=== PATIENT | female | born 1960 | race Caucasian/White ===

== ENCOUNTER 2017-01-25 05:56 | Day surgery (SDC) | payer OTHER ==
--- NOTE | 2017-01-16 14:53 | HP ---
HISTORY AND PHYSICAL: DATE OF OFFICE VISIT: 01/15/17 DATE OF SURGERY: 01/25/17 SURGEON: Karen Garza MD * (DICTATED BY ANA MARIA MOTA) PROCEDURE: Left knee arthroscopy with partial medial meniscectomy, possible chondroplasty, and possible synovectomy. CHIEF COMPLAINT: Left knee pain. HISTORY OF PRESENT ILLNESS: Ms. Silvestre is a 56-year-old female with complaints of left knee pain after injuring her knee at work. MRI shows degeneration in the body of the medial meniscus, which likely represents a re-tear. She continues to have pain in the medial aspect of her knee and she feels like there is a mass in the back of her knee. She has catching along the joint line and increased pain with bending and kneeling. PAST MEDICAL HISTORY: Endometrial cancer. PAST SURGICAL HISTORY: Hysterectomy, cholecystectomy, and left knee arthroscopy. CURRENT MEDICATIONS: 1. Flexeril. 2. Ventolin HFA. 3. Fluticasone. 4. Ibuprofen. 5. Furosemide. 6. Nexium. ALLERGIES: CLARITHROMYCIN, LEVAQUIN, and LATEX. FAMILY HISTORY: Cancer and AFib. SOCIAL HISTORY: She is a 56-year-old female who is . 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 She denies use of tobacco or illicit drugs. She uses occasional alcohol. REVIEW OF SYSTEMS: A complete 14-point review of systems was reviewed with the patient, was all negative or noncontributory. PHYSICAL EXAMINATION GENERAL: She is well developed, well nourished, in no acute distress. VITAL SIGNS: She stands 5 feet 7 inches tall, weighs 322 pounds. Blood pressure 128/80, heart rate 79. HEENT: Normocephalic, atraumatic. NECK: Supple. No palpable lymph nodes. PULMONARY: Lungs are clear to auscultation bilaterally. CARDIO: Regular rate and rhythm. Strong S1, S2. ABDOMEN: Soft, nontender, nondistended. NEUROLOGIC: She is alert and oriented x3. Cranial nerves II through XII are intact. MUSCULOSKELETAL: Left lower extremity, the skin is intact. There are no open wounds or abrasions. She has tenderness along the medial joint line. A palpable Maoy's cyst posteriorly. 5 to 120 degrees flexion. No varus or valgus instability. Negative Tonya's. Distally neurovascularly intact. ASSESSMENT AND PLAN: Ms. Silvestre is a 56-year-old female with complaints of left knee pain after being involved in a work-related injury. She has failed conservative management and has elected to proceed with a left knee arthroscopy with partial medial meniscectomy, possible chondroplasty, and possible synovectomy. The surgery is scheduled for 01/25/[address] Garza discussed the risks and benefits of the surgery at today's visit and all of her questions were answered. She will see Dr. Garza back 10 to 14 day after the surgery. ANA MARIA MOTA [id number]/[facility] #: [id number] [place]
[~2017-01-25 05:56] MED LIST: Buffered Lidocaine 0.9% SYRIN* 5 ML/SYR SYRINGE INTRADERM ONE
[2017-01-25] MEDS ORDERED: Famotidine IV* 10 MG/ML 2 ML (20 mg) ONE (05:57)
[2017-01-25] MEDS ORDERED: ceFAZolin 1 GM in Dextrose (*) 1 GM/50 ML BAG IVPB ONE (05:57)
[2017-01-25] MEDS ORDERED: ceFAZolin 2 GM PREMIX(*) 2 GM/50 ML BAG IVPB ONE (05:58)
[2017-01-25] MEDS ORDERED: Buffered Lidocaine 0.9% SYRIN* 5 ML/SYR SYRINGE ONE (05:58)
[2017-01-25] MEDS ORDERED: Famotidine IV* 10 MG/ML 2 ML (20 mg) IV ONE (06:00)
[2017-01-25] MEDS ORDERED: EPINEPHrine AMP 1 MG/ML ONE (06:49)
[2017-01-25] MEDS ORDERED: Bupivacaine 0.5% SDV PF* 30 ML VIAL ONE (06:50)
[2017-01-25] MEDS ORDERED: methylPREDNISolone ACETATE 80* 80 MG/ML 1 ML VIAL ONE (07:01)
[2017-01-25] MEDS ORDERED: Chloroprocaine 2%* 20 ML VIAL ONE (07:28)
[2017-01-25] MEDS ORDERED: Ondansetron INJ* 2 MG/ML VIAL ONE (07:28)
[2017-01-25] MEDS ORDERED: Midazolam* 1 MG/ML 5 ML VIAL (5 MG) ONE (07:28)
[2017-01-25] MEDS ORDERED: Ketorolac INJ* 30 MG/ML 1 ML VIAL ONE (07:28)
[2017-01-25] MEDS ORDERED: fentaNYL* 50 MCG/ML 2 ML VIAL (100 MCG VIAL) ONE (07:28)
[2017-01-25] MEDS ORDERED: Propofol* 10 MG/ML 20 ML BTL IV PUSH ONE (08:02)
[2017-01-25] MEDS ORDERED: Lidocaine 2% PF * 5 ML VIAL ONE (08:02)
[2017-01-25] MEDS ORDERED: Acetaminophen TAB* 325 MG PO PRN (08:23)
[2017-01-25] MEDS ORDERED: DiMENhydriNATE IV* 50 MG/ML VIAL IV PUSH PRN (08:23)
[2017-01-25] MEDS ORDERED: HYDROmorphone* 1 MG/ML 1 ML SYR IV PRN (08:23)
[2017-01-25] MEDS ORDERED: oxyCODONE TAB* 5 MG TAB PO PRN (08:23)
[2017-01-25] MEDS ORDERED: oxyCODONE TAB* 5 MG TAB ONE (09:57)
[2017-01-25 09:59] VITALS: BP 129/84
--- NOTE | 2017-01-26 02:52 | OP ---
DATE OF OPERATION: 01/25/17 [facility] DATE OF : 56 ATTENDING SURGEON: Karen Garza MD. INFORMATION CLERK BROKERAGE: ANA MARIA Gilliland. Craigluis angel did help throughout the procedure with preparation of the leg, manipulation of the knee, holding the instruments and wound closure. ANESTHESIOLOGIST: Dr. Hernandez. ANESTHESIA: Spinal. PRE-OPERATIVE DIAGNOSIS: Left knee acute medial meniscus tear, mild arthritic changes. 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 OPERATIVE PROCEDURE: Left knee arthroscopy with partial medial meniscectomy and medial chondroplasty. ESTIMATED BLOOD LOSS: Less than 25 cc. COMPLICATIONS: None. SPECIMENS: None. BRIEF HISTORY/INDICATION: Ms. Silvestre is a 56-year-old female with left knee pain since a work injury on 10/25/15. She had a medial meniscal tear found at that time and did have arthroscopy with partial medial meniscectomy. The patient did well until approximately 6 months ago. She had re-tear of the medial meniscus. The patient failed conservative treatment with physical therapy, intraarticular injection and activity modification. She elected to undergo a second arthroscopy with partial medial meniscectomy due to continued pain. Informed consent was obtained from the patient. She understood the risks of the surgery included, but were not limited to bleeding, infection, damage to nearby structures, continued pain, need for further surgery, stroke, re-tear of the meniscus, heart attack, blood clot, and . She wished to proceed. INTRAOPERATIVE FINDINGS: Intraoperatively, the patient had acute radial tear on the posterior aspect of the medial meniscus. This involved white-red and red -red zone. 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 These were advanced from her first arthroscopy. DESCRIPTION OF PROCEDURE: Ms. Silvestre was identified in the preanesthesia unit. Her left lower extremity was marked as the correct operative side. Informed consent was signed and placed in the chart. The patient was taken to the operating room and placed under spinal anesthesia. The left lower extremity was prepped and draped in the usual sterile fashion. Preop time-out was made to correctly identify the patient's side and site. Appropriate perioperative antibiotics were given within 1 hour of incision. A 0.5 cm standard anterolateral portal incision was made and the knife was carried down through the capsule. A trocar was introduced. As soon as the light and water sources were turned on, there was immediate visualization of the supra-patellar pouch. A tour of the knee joint was performed. Suprapatellar pouch showed no obvious abnormality. Some grade 2 and 3 Outerbridge cartilage changes in the patellofemoral compartment. Medial gutters showed no obvious loose body or plica. The medial compartment showed grade 2 and 3 Outerbridge cartilage changes affecting the medial femoral condyle. There was an acute radial tear in the posterior medial meniscus. ACL appeared to be intact. The knee was placed in the [id number] position. Lateral meniscus appeared to be intact. No significant cartilage changes in the lateral compartment. Under direct visualization, a 15 blade was used to make a standard medial portal. The probe was introduced and then a second tour of the knee joint was performed. There were no additional findings. Radiofrequency ablation wand was introduced into the knee joint. Anterior synovitis was carefully removed. This improved visualization. Small cartilage flaps along the medial femoral condyle were smoothed with the radiofrequency ablation wand. A straight biter was placed in the joint next and used to perform partial medial meniscectomy along the posterior medial meniscus in the white-red and red-red zone. Radiofrequency ablation wand was then used to coagulate the smooth edge of the meniscus. The knee was copiously irrigated with sterile saline. All instruments were carefully removed. The incisions were closed using interrupted 3-0 nylon suture. Intra-articular injection of 80 mg Depo-Medrol and 6 cc of 0.25% Marcaine was placed in the knee joint. Sterile Xeroform, 4x4s, and Webril were used to cover the incisions. John wrap and cold pack was placed over this. The patient's anesthesia was reversed without difficulty. She will be taken to the PACU in stable condition. Intended weightbearing will be weightbearing as tolerated. Intended DVT prophylaxis will be aspirin. She will follow up in 2 weeks' time for suture removal. [id number]/[facility] #: [id number] [place]
== END 2017-01-25 10:03 | disposition home or self-care (01) ==
LOC: OR 05:56
PROVIDERS: ATTEND Orthopaedic Surgery Adult Reconstructive Orthopaedic Surgery
DX: S83.242A Other tear of medial meniscus, current injury, left knee, initial encounter (principal); E66.01 Morbid (severe) obesity due to excess calories; X58.XXXA Exposure to other specified factors, initial encounter; Y92.9 Unspecified place or not applicable; Y99.0 Civilian activity done for income or pay
CPT/HCPCS: A9270-GY; J0171; J0690; J1040; J1885; J2250; J2400; J2405; J2704; J3010

== ENCOUNTER 2018-09-03 01:58 | Inpatient (IN) | payer BC, OTHER ==
--- OUTSIDE RECORDS SUMMARY | 2018-09-03 02:07 | XMS REPORT | Continuity of Care Document ---
:1960 External Reference #:[id number] Author Name Elena Hawkins Care Team Providers Name Role Phone Blanka Walters MD Primary Care Physician Unavailable Payers Date Identification Numbers Payment Provider Subscriber Policy Number: [id number] [employer] Anusha Huizar PayID: [id number] [address] [address] [place] [address] Effective: 2016 Policy Number: [id number] [facility] Anusha Hiuzar Onset: 2015 Group Number: [id number] [address] Group Name: [id number] [place] [address] PayID: [id number] Expires: 2016 Policy Number: [id number] [facility] Anusha Huizar Onset: 2015 Group Name: [phone] [address] PayID: [email or web address] [address] Advance Directives Description No Information Available Problems Date Description Provider Status Onset: 11/19/2015 Localized, primary osteoarthritis Karen Garza M.D. Active Onset: 01/31/2016 Derangement of posterior horn of medial Karen Garza M.D. Active meniscus Onset: 08/14/2018 Localized, secondary osteoarthritis Karen Garza M.D. Active Family History Date Family Member(s) Observation Comments General Cancer Father Atrial Fibrillation Age 82 Father Prostate Cancer Mother Obesity Age 80 Siblings 2 1 Brother - Healthy Age 57 1 Sister - Healthy Age 54 Social History Type Date Description Comments Sex Unknown Marital Status Lives With Occupation [employer] ETOH Use Rarely consumes alcohol Tobacco Use Start: Unknown Patient has never smoked Recreational Drug Use Denies Drug Use Smoking Status Reviewed: 08/14/18 Patient has never smoked Exercise Type/Frequency Exercises regularly Allergies, Adverse Reactions, Alerts Date Description Reaction Status Severity Comments 09/15/2015 Clarithromycin Active stomach pain 11/12/2015 Levaquin Active muscle pain 11/19/2015 Latex Active Medications Medication Date Status Form Strength Qnty SIG Indications Ordering Provider Suprep Bowel 02/13 Active Solution 17.5-3.13 1unit Take Peter T. Prep -1.6GM/18 s according to ANNE Mcguire MD physician's instructions starting the day before procedure. Split the dose as directed. Azelastine HCL 10/22 Active Solution 0.1% 30uni spray two J01.90 Zheng (Nasal) ts sprays in Olivia, [employer] each nostril twice a day as needed Flexeril 08/30 Active Tablet 10mg 30tab Take 1 Tablet s By Mouth Varn, Every 8 Hours N.P. as Needed For Pain Esomeprazole 03/[address] 40mg 90cap Take 1 K21.9 Magnesium s Capsule Daily Varn, N.P. Ventolin HFA 07/05 Active Aerosol 108(90Bas 1inha 1 to 2 J20.9 e) ler inhalations Varn, mcg/Act every 4 hours N.P. as needed Fluticasone 11/11 Active Suspension 50mcg/Act 16uni [place] 2 J01.00 Zheng ts Sprays Into Olivia, [employer] Each Nostril Every Day J30.9 Ibuprofen Active Capsules 200mg as needed Unknown Cyclobenzaprine HCL 08/11/2018 - Hx Tablets 10mg 30ta Take 1 Una 08/13/2018 bs Tablet By Varn, N.P. Mouth Every 8 Hours as Needed For Pain Augmentin 07/01/2018 - Hx Tablets 875-125 20ta 1 tablet by Zheng Baker, 07/11/2018 mg bs mouth q12 [employer] hours for 10 days Azithromycin 06/20/2018 - Hx Tablets 250mg 6tab 2 tabs by J0 Zheng Baker , 06/24/2018 s mouth every 1. [employer] day x1 day, 90 1 tab by mouth every day x 4 days Benzonatate 06/20/2018 - Hx Capsules 200mg 30ca one by Ritu Baker, 06/24/2018 ps mouth three 1. [employer] times daily 90 as needed for cough Azithromycin 10/22/2017 - Hx Tablets 250mg 6tab 2 tabs by J0 Zheng Baker , 11/01/2017 s mouth every 1. [employer] day x1 day, 90 1 tab by mouth every day x 4 days Azithromycin 07/23/2017 - Hx Tablets 250mg 6tab 2 tabs by R5 Zheng Baker , 07/29/2017 s mouth every 0. [employer] day x1 day, 9 1 tab by mouth every day x 4 days Cheratussin ac 07/19/2017 - Hx Syrup 100-10m 120m 5-10ml by J2 Zheng Baker, 01/30/2018 g/5ML l mouth every 0. [employer] 4 hours as 9 needed Amoxicillin/Clavulana 07/19/2017 - Hx Tablets 875-125 20ta take one Ann0 moris Moore Potassium 07/25/2017 mg bs tablet q12 1. [employer] hours for 90 10 days Flexeril 04/13/2017 - Hx Tablet 10mg 30ta Take 1 Una 07/23/2017 bs Tablet By Kayla, N.P. Mouth Every 8 Hours as Needed For Pain Amoxicillin/Clavulana 04/13/2017 - Hx Tablets 875-125 20ta take one 0 moris Moore Potassium 04/23/2017 mg bs tablet q12 1. [employer] hours for 90 10 days Oxycodone-Acetaminoph 01/25/2017 - Hx Tablets 5-325mg 45ta 1-2 tabs by Karen jackson 01/26/2017 bs mouth every Jose Garza 6 hours as needed for pain Aspirin 01/25/2017 - Hx Tablets 325mg 14ta take 1 by Karen 01/26/2017 bs mouth once Jose Garza a day for two weeks Amoxicillin/Clavulana 11/09/2016 - Hx Tablets 875-125 20ta take one Ann0 moris Moore Potassium 11/19/2016 mg bs tablet q12 1. [employer] hours for 90 10 days Cyclobenzaprine HCL 10/02/2016 - Hx Tablets 10mg 60ta take 1 tab Karen 01/30/2018 bs by mouth 2 Greg, M.D. times a day as needed Doxycycline Hyclate 09/14/2016 - Hx Capsules 100mg 20ca one tablet R0 Zhengtitus Baker, 09/22/2016 ps twice daily 5 [employer] for 10 days. Symbicort 09/14/2016 - Hx Aerosol 160-4.5 10.2 2 puff R0 Zheng Baker, 11/09/2016 mcg/Act 00gm inhaled 5 [employer] twice a day Methylprednisolone 09/14/2016 - Hx TBPK 4mg QS as directed Zheng Baker, 09/19/2016 on package 5 [employer] Benzonatate 09/14/2016 - Hx Capsules 200mg 30ca one by R0 Zheng Baker, 01/30/2018 ps mouth three 5 [employer] times daily as needed for cough Amoxicillin/Clavulana 07/17/2016 - Hx Tablets 875-125 10ta one tablet [address] Potassium 07/22/2016 mg bs by mouth 1. Varn, N.P. twice daily 00 for 5 days Medrol 07/10/2016 - Hx TBPK 4mg 21un 6 by mouth Una 07/16/2016 its day 1, 5 by Varn, N.P. mouth day 2, 4 by mouth day 3, 3 by mouth day 4, 2 by mouth day 5, 1 by mouth day 6 Flovent HFA 07/10/2016 - Hx Aerosol 110mcg/ 1uni 2 puffs Una 08/09/2016 Act ts twice daily Varn, N.P. Amoxicillin/Clavulana 07/05/2016 - Hx Tablets 875-125 20ta one tablet [address] Potassium 07/15/2016 mg bs by mouth 1. Varn, N.P. twice daily 00 for 10 days Benzonatate 07/05/2016 - Hx Capsules 100mg 30ca one by [address] 07/20/2016 ps mouth three 0. Varn, N.P. times daily 9 as needed for cough Cheratussin ac 07/05/2016 - Hx Syrup 100-10m 120m [address] 07/19/2016 g/5ML l by mouth 0. Varn, N.P. every 4 9 hours as needed Fluconazole 07/05/2016 - Hx Tablets 150mg 3tab one by J0 Una 09/14/2016 s mouth every 1. Varn, N.P. 3 days for 00 3 doses Amoxicillin/Clavulana 03/31/2016 - Hx Tablets 875-125 20ta take one Ann0 moris Moore Potassium 04/10/2016 mg bs tablet q12 1. [employer] hours for 90 10 days Benzonatate 03/31/2016 - Hx Capsules 200mg 30ca one by Ritu Baker, 04/10/2016 ps mouth three 1. [employer] times daily 90 as needed for cough Cyclobenzaprine HCL 03/06/2016 - Hx Tablets 10mg 30ta 1 tablet by Meena 09/14/2016 bs mouth every [place], [employer] 8 hours as needed for pain. Percocet 02/17/2016 - Hx Tablets 5-325mg 45ta one tablet Karen 02/29/2016 bs every 4-6 Jose Garza hours as needed for pain Meloxicam 11/19/2015 - Hx Tablets 15mg 60ta 1 by mouth M2 Karen 02/29/2016 bs every day 3. Jose Garza 32 2 Benzonatate 11/12/2015 - Hx Capsules 200mg 30ca one by Ritu Baker, 11/22/2015 ps mouth three 1. [employer] times daily 00 as needed for cough Amoxicillin/Clavulana 11/12/2015 - Hx Tablets 875-125 20ta take one Ritu moris Moore Potassium 11/22/2015 mg bs tablet q12 1. [employer] hours for 00 10 days Nexium - Hx Capsules 40mg 90ca 1 by mouth K2 Una 03/17/2017 ps every day 1. Luken, N.P. 9 Furosemide - Hx Tablets 40mg 1 by mouth R6 Unknown 10/22/2017 prn 0. 0 Medications Administered in Office Medication Date Status Form Strength Qnty SIG Indications Ordering Provider Depomedrol Administered Injection Karen 40MG 019 Jose Garza Depomedrol Administered Injection Karen 40MG 017 Jose Garza Depomedrol Administered Injection Karen 40MG 016 Jose Garza Immunizations CPT Code Status Date Vaccine Lot # [id number] Given 04/09/2018 Influenza Virus Vaccine, Quadrivalent, Split, Preservative Free [id number] Given 01/30/2018 Tdap - Tetanus/Diptheria/Acellular Pertussis [id number] Given 04/12/2016 Flu Vaccine NOS Vital Signs Date Vital Result Comment 08/14/2018 9:01am Height 67 inches 5'7" Weight 250.00 lb Heart Rate 80 /min BP Systolic 130 mmHg BP Diastolic 70 mmHg Respiratory Rate 12 /min Body Temperature 97.1 F Pain Level 3 BMI (Body Mass Index) 39.2 kg/m2 06/20/2018 11:01am Height 67.25 inches 5'7.25" Weight 250.00 lb Heart Rate 96 /min BP Systolic 148 mmHg BP Diastolic 88 mmHg Body Temperature 99.9 F O2 % BldC Oximetry 100 % BMI (Body Mass Index) 38.9 kg/m2 01/30/2018 10:37am Height 67.25 inches 5'7.25" Weight 252.00 lb Heart Rate 59 /min BP Systolic 129 mmHg BP Diastolic 74 mmHg Body Temperature 98.3 F O2 % BldC Oximetry 100 % BMI (Body Mass Index) 39.2 kg/m2 10/22/2017 2:16pm Weight 253.50 lb Heart Rate 86 /min BP Systolic 134 mmHg BP Diastolic 81 mmHg Body Temperature 98.3 F O2 % BldC Oximetry 97 % 07/23/2017 10:36am Weight 266.00 lb Heart Rate 85 /min BP Systolic 130 mmHg BP Diastolic 82 mmHg Body Temperature 100.9 F O2 % BldC Oximetry 94 % 04/13/2017 2:57pm Heart Rate 77 /min BP Systolic Sitting 124 mmHg BP Diastolic Sitting 88 mmHg Body Temperature 98.3 F O2 % BldC Oximetry 95 % 02/05/2017 1:21pm Height 67 inches 5'7" Weight 322.00 lb Heart Rate 76 /min BP Systolic 115 mmHg BP Diastolic 80 mmHg Respiratory Rate 16 /min Body Temperature 98.5 F Pain Level 0 BMI (Body Mass Index) 50.4 kg/m2 01/15/2017 11:17am Height 67 inches 5'7" Weight 322.00 lb Heart Rate 79 /min BP Systolic 128 mmHg BP Diastolic 80 mmHg Body Temperature 98.1 F BMI (Body Mass Index) 50.4 kg/m2 01/15/2017 9:25am Weight 322.25 lb Heart Rate 79 /min BP Systolic 128 mmHg BP Diastolic 80 mmHg Body Temperature 98.1 F O2 % BldC Oximetry 97 % 11/13/2016 2:20pm Height 67.5 inches 5'7.50" Weight 310.00 lb BP Systolic 111 mmHg BP Diastolic 81 mmHg Respiratory Rate 14 /min Body Temperature 97.3 F Pain Level 4 BMI (Body Mass Index) 47.8 kg/m2 11/09/2016 3:56pm Heart Rate 101 /min BP Systolic 110 mmHg BP Diastolic 80 mmHg Body Temperature 98.2 F O2 % BldC Oximetry 94 % 10/16/2016 2:24pm Height 67.5 inches 5'7.50" Weight 310.00 lb Heart Rate 100 /min BP Systolic 166 mmHg BP Diastolic 89 mmHg Body Temperature 97.6 F Pain Level 5 BMI (Body Mass Index) 47.8 kg/m2 10/02/2016 2:55pm Height 67.5 inches 5'7.50" Weight 312.00 lb Heart Rate 85 /min BP Systolic 149 mmHg BP Diastolic 93 mmHg Body Temperature 97.3 F Pain Level 6 BMI (Body Mass Index) 48.1 kg/m2 09/14/2016 3:56pm Heart Rate 87 /min BP Systolic Sitting 148 mmHg BP Diastolic Sitting 86 mmHg Respiratory Rate 16 /min Body Temperature 98.0 F O2 % BldC Oximetry 98 % 07/05/2016 3:12pm Heart Rate 88 /min BP Systolic Sitting 130 mmHg BP Diastolic Sitting 82 mmHg Respiratory Rate 15 /min Body Temperature 97.0 F O2 % BldC Oximetry 98 % 03/31/2016 3:35pm Weight 328.00 lb With shoes Heart Rate 78 /min BP Systolic Sitting 120 mmHg BP Diastolic Sitting 70 mmHg Body Temperature 96.9 F O2 % BldC Oximetry 98 % 03/31/2016 2:38pm Height 67 inches 5'7" Weight 320.00 lb Respiratory Rate 16 /min Pain Level 3 can increase with movement BMI (Body Mass Index) 50.1 kg/m2 03/01/2016 8:23am Heart Rate 86 /min BP Systolic 149 mmHg BP Diastolic 81 mmHg Pain Level 1 02/01/2016 8:40am Height 67 inches 5'7" Weight 320.12 lb Heart Rate 84 /min BP Systolic Sitting 128 mmHg BP Diastolic Sitting 88 mmHg Body Temperature 98.0 F O2 % BldC Oximetry 97 % BMI (Body Mass Index) 50.1 kg/m2 01/31/2016 9:58am Height 67 inches 5'7" Weight 314.00 lb Pain Level 3 BMI (Body Mass Index) 49.2 kg/m2 12/15/2015 11:31am Height 67 inches 5'7" Weight 314.00 lb Pain Level 3 BMI (Body Mass Index) 49.2 kg/m2 11/19/2015 9:05am Height 67 inches 5'7" Weight 314.00 lb BP Systolic 140 mmHg BP Diastolic 80 mmHg BMI (Body Mass Index) 49.2 kg/m2 11/15/2015 3:09pm Weight 314.00 lb Heart Rate 86 /min BP Systolic Sitting 126 mmHg BP Diastolic Sitting 80 mmHg Body Temperature 98.3 F Pain Level 3 L knee O2 % BldC Oximetry 96 % 11/12/2015 9:39am Weight 314.00 lb Heart Rate 85 /min BP Systolic Sitting 126 mmHg BP Diastolic Sitting 88 mmHg Body Temperature 96.6 F O2 % BldC Oximetry 97 % 11/12/2015 9:34am Weight 314.00 lb Heart Rate 85 /min BP Systolic Sitting 126 mmHg BP Diastolic Sitting 88 mmHg Body Temperature 96.6 F O2 % BldC Oximetry 97 % 09/15/2015 2:37pm Height 67 inches 5'7" Weight 315.00 lb Heart Rate 94 /min BP Systolic Sitting 128 mmHg BP Diastolic Sitting 84 mmHg Respiratory Rate 14 /min Body Temperature 100.5 F O2 % BldC Oximetry 96 % BMI (Body Mass Index) 49.3 kg/m2 Results Test Date Facility Test Result H/L Range Note Laboratory test 02/18/2018 [facility] Surgical Pathology SEE RESULT 1, [address] [place] [address] [phone] Lipid Profile 01/24/2018 [facility] Triglycerides 72 mg/dL 3 (Trig/Chol/HDL) [address] [place] [address] [phone] Cholesterol 212 mg/dL 4 HDL Cholesterol 53.2 mg/dL 5 LDL Cholesterol 144 mg/dL 6 Laboratory test 01/24/2018 [facility] Glucose 110 mg/dL High 70-100 [address] [place] [address] [phone] Order 07/23/2017 [facility] Nebulizer <pending> [address] [place] [address] [phone] CBC No Diff 01/15/2017 [facility] White Blood 8.8 N 3.5-10.[address] Count 10^3/[place] [address] [phone] Red Blood Count 4.73 10^6/uL N 4.0-5.4 Hemoglobin 13.2 g/dL N 12.0-16.0 Hematocrit 41 % N 35-47 Mean Corpuscular Volume 86 fL N 80-97 Mean Corpuscular Hemoglobin 28 pg N 27-31 Mean Corpuscular HGB Conc 33 g/dL N 31-36 Red Cell Distribution Width 14 % N 10.5-15 Platelet Count 272 10^3/uL N 150-450 Mean Platelet Volume 8 um3 N 7.4-10.4 Basic Metabolic Panel 01/15/2017 [facility] Sodium 141 mmol/L N 133-[address] [place] [address] [phone] Potassium 4.8 mmol/L N 3.5-5.0 Chloride 104 mmol/L N 101-111 Co2 Carbon Dioxide 31 mmol/L N 22-32 Anion Gap 6 mmol/L N 2-11 Glucose 115 mg/dL High 70-100 Blood Urea Nitrogen 14 mg/dL N 6-24 Creatinine 0.82 mg/dL N 0.51-0.95 BUN/Creatinine Ratio 17.1 N 8-20 Calcium 9.2 mg/dL N 8.6-10.3 Egfr Non- 71.6 N >60 Egfr 92.1 N >60 8 Inr/Protime 01/15/2017 [facility] Inr 0.90 N 0.89-1.[address] [place] [address] [phone] Laboratory test 01/15/2017 [facility] Partial 28.8 N 26.0- 36.[address] [place] [address] PTT [phone] Laboratory test 09/27/2015 [facility] C Reactive 10.23 mg/L High < 5.00 [address] [place] [address] [phone] Laboratory test 09/20/2015 [facility] C Reactive 30.81 mg/L High < 5.00 [address] [place] [address] [phone] CBC Auto Diff 09/15/2015 [facility] White Blood 11.8 High 3.5- 10.[address] Count 10^3/[place] [address] [phone] Red Blood Count 4.61 10^6/uL N 4.0-5.4 Hemoglobin 12.4 g/dL N 12.0-16.0 Hematocrit 38 % N 35-47 Mean Corpuscular Volume 83 fL N 80-97 Mean Corpuscular Hemoglobin 27 pg N 27-31 Mean Corpuscular HGB Conc 32 g/dL N 31-36 Red Cell Distribution Width 14 % N 10.5-15 Platelet Count 242 10^3/uL N 150-450 Mean Platelet Volume 9 um3 N 7.4-10.4 Abs Neutrophils 8.8 10^3/uL High 1.5-7.7 Abs Lymphocytes 1.4 10^3/uL N 1.0-4.8 Abs Monocytes 1.4 10^3/uL High 0-0.8 Abs Eosinophils 0 10^3/uL N 0-0.6 Abs Basophils 0.1 10^3/uL N 0-0.2 Abs Nucleated RBC 0 10^3/uL N Granulocyte % 74.8 % N 38-83 Lymphocyte % 12.2 % Low 25-47 Monocyte % 12.1 % High 1-9 Eosinophil % 0.3 % N 0-6 Basophil % 0.6 % N 0-2 Nucleated Red Blood Cells % 0 N Laboratory test 09/15/2015 [facility] Blood Culture SEE RESULT [address] [place] [address] [phone] Comp Metabolic 09/15/2015 [facility] Sodium 135 mmol/L N 133- [address] [place] [address] [phone] Potassium 3.8 mmol/L N 3.5-5.0 Chloride 98 mmol/L Low 101-111 Co2 Carbon Dioxide 27 mmol/L N 22-32 Anion Gap 10 mmol/L N 2-11 Glucose 115 mg/dL High 70-100 Blood Urea Nitrogen 12 mg/dL N 6-24 Creatinine 0.98 mg/dL High 0.51-0.95 BUN/Creatinine Ratio 12.2 N 8-20 Calcium 8.5 mg/dL Low 8.6-10.3 Total Protein 6.4 g/dL N 6.4-8.9 Albumin 3.6 g/dL N 3.2-5.2 Globulin 2.8 g/dL N 2-4 Albumin/Globulin Ratio 1.3 N 1-3 Total Bilirubin 0.70 mg/dL N 0.2-1.0 Alkaline Phosphatase 98 U/L N 34-104 Alt 16 U/L N 7-52 Ast 15 U/L N 13-39 Egfr Non- 58.5 N >60 Egfr 75.2 N >60 12 Laboratory test 09/15/2015 [facility] C Reactive 297.38 mg/L High < 5.00 [address] [place] [address] [phone] Erythrocyte Sed Rate 53 mm/Hr High 0-30 1 [id number] 2 SEE RESULT BELOW Name: ANUSHA HUIZAR : [address]: Scottie Mcguire MD Acct: [id number] Unit: [id number] AGE: 57 Location: [facility] Re02/18/18 SEX: F Status: DEP REF SPEC: [id number] CASIE: 02/18/18-[address]: Scottie Mcguire MD REQ: [id number] RECD: 02/18/18015 STATUS: MANE MARTINEZ DR: Blanka Garza [employer] _ ORDERED: LEVEL 4/2 COMMENTS: [id number] FINAL DIAGNOSIS 1. Colon, rectosigmoid at 15 cm, biopsy: -- Large intestinal mucosa with focal hyperplastic change. -- No evidence of microscopic/lymphocytic colitis, collagenous colitis or other chronic inflammatory bowel process identified. 2. Colon, rectal polyp at 8 cm, biopsy: -- Hyperplastic polyp. CLINICAL HISTORY No family history, unusual bowel habits ? four times a day ? no blood POST-OPERATIVE DIAGNOSIS Colonoscopy: to cecum; conclusion: diverticulosis, sigmoid; adhesions; polyps ? follow up GROSS DESCRIPTION 1. The specimen is received in formalin labeled, Biopsy Rectosigmoid Colon at 15 cm, and consists of a 0.7 x 0.4 x 0.2 cm aggregate of belle-red irregular to polypoid soft tissue fragments which is submitted entirely in one cassette. 2. The specimen is received in formalin labeled, Biopsy Rectal Polyp at 8 cm, and consists of a 0.3 x 0.2 x 0.2 cm belle-pink irregular to polypoid soft tissue fragment which is submitted entirely in one cassette. Signed by and Reported on: Raymond Carter MD 0956 END OF REPORT DEPARTMENT OF PATHOLOGY, [address] [place] [address] Raymond Carter M.D. Director [facility] # [id number] 3 Desirable: <150 Borderline High: 150-199 High: 200-499 Very High: >500 4 Desirable: <200 Borderline High: 200-239 High: >239 5 Low: <40 Desirable: 40-60 High: >60 6 Desirable: <100 Near Optimal: 100-129 Borderline High: 130-159 High: 160-189 Very High: >189 7 FASTING 10 HOUR 8 Because ethnic data is not always readily available, this report includes an eGFR for both -Americans and non- Americans. The National Kidney Disease Education Program (NKDEP) does not endorse the use of the MDRD equation for patients that are not between the ages of 18 and 70, are , have extremes of body size, muscle mass, or nutritional status, or are non- or non-. According to the National Kidney Foundation, irrespective of diagnosis, the stage of the disease is based on the level of kidney function: Stage Description GFR(mL/min/1.73 m(2)) 1 Kidney damage with normal or decreased GFR 90 2 Kidney damage with mild decrease in GFR 60-89 3 Moderate decrease in GFR 30-59 4 Severe decrease in GFR 15-29 5 Kidney failure <15 (or dialysis) 9 Acute inflammation: >10.00 10 Acute inflammation: >10.00 11 SEE RESULT BELOW Name: ANUSHA HUIZAR : [address]: Una Garza NP Acct: [id number] Unit: [id number] AGE: 55 Location: [facility] Re09/15/15 SEX: F Status: REG REF SPEC: [id number] CASIE: 09/15/[address]: Una Garza NP REQ: [id number] RECD: 09/15/15 STATUS: COMP _ SOURCE: BLOOD,VENO SPDESC: ORDERED: Blood Cult Procedure Result Reported Site Aerobic Culture Bottle Final 09/20/15- 1624 ML No Growth Day 5 Anaerobic Culture Bottle Final 09/20/15- 1624 ML No Growth Day 5 * ML - MAIN LAB ([facility]) . END OF REPORT * ML=Testing performed at Main Lab DEPARTMENT OF PATHOLOGY, [address] [place] [address] Raymond Carter M.D. Director [facility] # [id number] 12 Because ethnic data is not always readily available, this report includes an eGFR for both -Americans and non- Americans. The National Kidney Disease Education Program (NKDEP) does not endorse the use of the MDRD equation for patients that are not between the ages of 18 and 70, are , have extremes of body size, muscle mass, or nutritional status, or are non- or non-. According to the National Kidney Foundation, irrespective of diagnosis, the stage of the disease is based on the level of kidney function: Stage Description GFR(mL/min/1.73 m(2)) 1 Kidney damage with normal or decreased GFR 90 2 Kidney damage with mild decrease in GFR 60-89 3 Moderate decrease in GFR 30-59 4 Severe decrease in GFR 15-29 5 Kidney failure <15 (or dialysis) 13 Acute inflammation: >10.00 Procedures Date Code Description Status 08/14/201813126 Inject/Drain Joint/Bursa Major W/O US Completed 02/18/2018 [id number] Colonoscopy Completed 02/18/2018 70718 Colonoscopy Flexible W/Biopsy Completed 02/05/2018 [id number] Mammogram Completed 01/25/2017 14395 Arthroscopy,Knee,Meniscectomy Medial Or Lateral Completed 01/25/2017 63316 Arthroscopy,Knee,Meniscectomy Medial Or Lateral Completed 01/15/2017 85981 EKG Tracing & Interpretation Completed 10/03/2016 92591 Diffusing Capacity Completed 10/03/2016 62698 Plethysmography Determination Lung Volumes & Per Airway Completed Resist 10/03/2016 54955 Pulmonary Function><Bronchodil Completed 10/02/2016 20388 Inject/Drain Joint/Bursa Major W/O US Completed 02/17/2016 28374 Arthroscopy,Knee,Meniscectomy Media & Lateral Completed 02/17/2016 17879 Arthroscopy,Knee,Meniscectomy Media & Lateral Completed 02/17/2016 83362 Arthroscopy,Knee,Meniscectomy Media & Lateral Completed 02/17/2016 53032 Inject/Drain Joint/Bursa Major W/O US Completed 02/01/2016 70673 EKG Tracing & Interpretation Completed 11/19/2015 52054 Inject/Drain Joint/Bursa Major W/O US Completed 11/19/2015 38853 Inject/Drain Joint/Bursa Major W/O US Completed 09/27/2015 [id number] Mammogram Completed Encounters Type Date Location Provider Dx Diagnosis Office Visit 06/20/2018 [facility] Zheng Baker NP J01.90 Acute sinusitis , 10:40a Medicine - unspecified [place] Office Visit 01/30/2018 [facility] Una Garza, Z00.01 Encounter for 10:40a Medicine - N.P. general adult [place] medical exam w abnormal findings Z12.31 Encntr screen mammogram for malignant neoplasm of breast R73.01 Impaired fasting glucose E78.00 Pure hypercholesterolemia, unspecified K21.9 Gastro-esophageal reflux disease without esophagitis J30.9 Allergic rhinitis, unspecified R32 Unspecified urinary incontinence Z23 Encounter for immunization Office Visit 10/22/2017 2:20p [facility] Zheng Baker, J01.90 Acute sinusitis, Medicine - [employer] unspecified [place] Office Visit 07/23/2017 10:40a [facility] Zheng Olivia, R50.9 Fever, unspecified Medicine - [employer] [place] R05 Cough J01.90 Acute sinusitis, unspecified Office Visit 04/13/2017 2:40p [facility] Zheng Baker, J01.90 Acute sinusitis, Medicine - [employer] unspecified [place] Office Visit 01/15/2017 9:20a [facility] Zheng Baker, Z01.818 Encounter for other Medicine - [employer] preprocedural [place] examination M17.12 Unilateral primary osteoarthritis, left knee Office Visit 11/13/2016 2:15p [facility] Karen Garza, M25.562 Pain in left Of C.M.A. M.D. knee M17.12 Unilateral primary osteoarthritis, left knee M23.322 Oth meniscus derang, post horn of medial meniscus, l knee M25.462 Effusion, left knee Office Visit 11/09/2016 4:00p [facility] Zheng Baker, J01.90 Acute sinusitis, Medicine - [employer] unspecified [place] Office Visit 10/16/2016 2:30p Orthopedic Karenkonstantin Garza, M25.562 Pain in left knee Services Of M.D. C.M.A. M17.12 Unilateral primary osteoarthritis, left knee M25.462 Effusion, left knee Office Visit 09/14/2016 3:40p [facility] Zheng Baker [employer] R05 Cough Medicine - [place] Office Visit 07/05/2016 3:20p [facility] Una Garza, J01.00 Acute maxillary Medicine - N.P. sinusitis, [place] unspecified J20.9 Acute bronchitis, unspecified R32 Unspecified urinary incontinence Office Visit 03/31/2016 3:00p [facility] Zheng Baker, J01.90 Acute sinusitis, Medicine - [employer] unspecified [place] Office Visit 02/01/2016 8:20a [facility] Reilly Z01.818 Encounter for other Medicine - [place] [address] examination M23.322 Oth meniscus derang, post horn of medial meniscus, l knee M17.12 Unilateral primary osteoarthritis, left knee M25.462 Effusion, left knee K21.9 Gastro-esophageal reflux disease without esophagitis J30.9 Allergic rhinitis, unspecified Office Visit 01/31/2016 9:30a [facility]opedic Services Karen Greg, M25.562 Pain in left Of C.M.A. M.D. knee M25.562 Pain in left knee M25.462 Effusion, left knee M17.12 Unilateral primary osteoarthritis, left knee M23.322 Oth meniscus derang, post horn of medial meniscus, l knee Office Visit 12/15/2015 11:30a Orthopedic Services Karenkonstantin Tejadake, M25.562 Pain in left Of C.M.A. M.D. knee M25.462 Effusion, left knee S83.412D Sprain of medial collateral ligament of left knee, subs Office Visit 11/19/2015 9:00a Orthopedic Services Karenkonstantin Tejadake, M25.562 Pain in left Of C.M.A. M.D. knee M25.562 Pain in left knee M17.12 Unilateral primary osteoarthritis, left knee M17.12 Unilateral primary osteoarthritis, left knee M25.462 Effusion, left knee M25.462 Effusion, left knee S83.412A Sprain of medial collateral ligament of left knee, init S83.412A Sprain of medial collateral ligament of left knee, init M25.562 Pain in left knee Office Visit 11/15/2015 2:40p [facility] Thom Calderon M25.562 Pain in left Medicine - Jose Abdullahi knee [place] M25.562 Pain in left knee Office Visit 11/12/2015 9:40a [facility] Zheng Baker NP J01.00 Acute maxillary Medicine - sinusitis, [place] unspecified Office Visit 09/15/2015 2:40p [facility] Una Garza, R50.9 Fever, Medicine - N.P. unspecified [place] Z12.31 Encntr screen mammogram for malignant neoplasm of breast Plan of Treatment Future Appointment(s):02/11/2019 8:40 am - Una Garza N.P. at [facility] - Wjekzqizv67/20/2019 - Karen Garza M.D.M25.562 Pain in left kneeNew Xrays:Knee 3 Views LT, Ordered: 08/14/18Follow up:Follow up: need wc auth for ltka in udsbfyC27.462 Effusion, left kneeM17.32 Unilateral post-traumatic osteoarthritis, left knee
[2018-09-03] MEDS ORDERED: Ondansetron ODT TAB* 4 MG SL ONE (02:24)
[2018-09-03] MEDS ORDERED: Ondansetron INJ* 2 MG/ML VIAL IV ONE (03:14)
[2018-09-03] MEDS ORDERED: Morphine 4 MG/ML VIAL (1 ml) 4 MG/ML VIAL IV ONE ×3 (03:14→08:03)
[2018-09-03] MEDS ORDERED: NS 0.9% 1000 ML** 2,000 ML IV ONE (03:14)
[2018-09-03 03:33] LABS: ABS Basophils 0.1 10^3/ul (0-0.2); ABS Eosinophils 0.1 10^3/ul (0-0.6); ABS Lymphocytes 1.9 10^3/ul (1.0-4.8); ABS Monocytes 1.2 10^3/ul (0-0.8); ABS Neutrophils 7.7 10^3/ul (1.5-7.7); ABS Nucleated RBC 0 10^3/ul; Eosinophil % 0.9 %; Hematocrit 44 % (35-47); Hemoglobin 14.4 g/dl (12.0-16.0); Lymphocyte % 17.3 %; Mean Corpuscular HGB Conc 33 g/dl (31-36); Mean Corpuscular Hemoglobin 28 pg (27-31); Mean Corpuscular Volume 84 fL (80-97); Mean Platelet Volume 7.8 fL (7.4-10.4); Nucleated Red Blood Cells % 0.1; Platelet Count 277 10^3/ul (150-450); Red Blood Count 5.21 10^6/ul (4.00-5.40); Red Cell Distribution Width 14 % (10.5-15); White Blood Count 10.9 10^3/ul (3.5-10.8)
[2018-09-03 03:52] LABS: ALT 11 U/L (7-52); AST 11 U/L (13-39); Albumin 3.8 g/dL (3.2-5.2); Albumin/Globulin Ratio 1.4 (1-3); Alkaline Phosphatase 69 U/L (34-104); Anion Gap 6 mmol/L (2-11); BUN/Creatinine Ratio 19.2 (8-20); Blood Urea Nitrogen 15 mg/dL (6-24); CO2 Carbon Dioxide 30 mmol/L (22-32); Calcium 9.2 mg/dL (8.6-10.3); Chloride 101 mmol/L (101-111); EGFR African American 91.2 (>60); EGFR Non-African American 75.3 (>60); Globulin 2.7 g/dL (2-4); Glucose 136 mg/dL (70-100); Potassium 3.4 mmol/L (3.5-5.0); Sodium 137 mmol/L (135-145); Total Protein 6.5 g/dL (6.4-8.9)
[2018-09-03] MEDS ORDERED: Iohexol 300* (CONTRAST) 10 ML SDV IV ONE (05:08)
[2018-09-03 05:37] LABS: Urine Appearance Clear; Urine Bacteria 3+ (Absent); Urine Bilirubin Negative (Negative); Urine Blood 1+ (Negative); Urine Color Yellow; Urine Glucose Negative (Negative); Urine Ketones Negative (Negative); Urine Nitrite Negative (Negative); Urine Protein Negative (Negative); Urine Red Blood Cell 1+(3-5/hpf) (Absent); Urine Specific Gravity 1.005 (1.010-1.030); Urine Squamous Epithelial Cell Present (Absent); Urine Urobilinogen Negative (Negative); Urine White Blood Cell Trace(0-5/hpf) (Absent)
--- NOTE | 2018-09-03 07:05 | ED ---
Abdominal Pain/Female - HPI Summary HPI Summary: The patient is a 58 y/o F presenting to [facility] with a chief complaint of sudden onset nausea and vomiting for 3 days. During onset, she states that she continued to vomit the whole night into the next morning, with a few episodes since then. While her BMs were normal at first, she is now experiencing diarrhea and more RUQ abd pain that is worst now. The cramping pain, which is currently rated 10/10 in severity, is aggravated by lying down and alleviated with sitting. She additionally c/o mild fever. Hx of cholecystectomy, hysterectomy, and appendectomy. She takes Nexium. - History of Current Complaint Chief Complaint: EDNauseaVomitDiarrh Stated Complaint: FOOD POSIONING, PAIN IN STOMACH, PER PT Time Seen by Provider: 09/03/18 03:06 Hx Obtained From: Patient Onset/Duration: Sudden Onset, Lasting Days - three, Still Present Timing: Days Severity Initially: Moderate Severity Currently: Severe Pain Intensity: 10 Pain Scale Used: 0-10 Numeric Location: Discrete At: RUQ Radiates: No Character: Cramping Aggravating Factor(s): Other: - lying supine Alleviating Factor(s): Position - sitting up Associated Signs and Symptoms: Positive: Fever, Nausea, Vomiting, Diarrhea Allergies/Adverse Reactions: Allergies Allergy/AdvReac Type Severity Reaction Status Date / Time pine nut Allergy Severe Difficulty Verified 02/13/18 14:12 Breathing latex Allergy Intermediate Rash And Verified 02/13/18 14:12 Itching levofloxacin AdvReac Severe Severe Verified 02/13/18 14:12 Muscle Ache clarithromycin AdvReac Intermediate Stomach Verified 02/13/18 14:12 Cramps PMH/Surg Hx/FS Hx/Imm Hx Endocrine/Hematology History: Denies: Hx Diabetes, Hx Thyroid Disease Cardiovascular History: Denies: Hx Hypertension, Hx Pacemaker/ICD Respiratory History: Reports: Other Respiratory Problems/Disorders - HX OF PNEUMONIA SEVERAL TIMES IN THE PAST Denies: Hx Asthma, Hx Chronic Obstructive Pulmonary Disease (COPD) GI History: Reports: Hx Gastroesophageal Reflux Disease Denies: Hx Ulcer History: Denies: Hx Dialysis, Hx Renal Disease Musculoskeletal History: Reports: Hx Arthritis - BEGINNING OF STARTING Sensory History: Reports: Hx Contacts or Glasses Denies: Hx Hearing Aid Opthamlomology History: Reports: Hx Contacts or Glasses Psychiatric History: Denies: Hx Panic Disorder - Cancer History Hx Chemotherapy: No - Surgical History Surgery Procedure, Year, and Place: hysterectomy 1993. [place] 1999. LEFT KNEE MENISCUS 01/2016 Hx Anesthesia Reactions: No Infectious Disease History: No Infectious Disease History: Denies: Hx Hepatitis, Hx Human Immunodeficiency Virus (HIV), History Other Infectious Disease, Traveled Outside the [place] in Last 30 Days - Family History Known Family History: Positive: Non-Contributory Family History: NON CONTRIBUTORY - Social History Alcohol Use: Rare Alcohol Amount: 1 GLASS WINE EVERY FEW MONTHS Substance Use Type: Reports: None Smoking Status (MU): Never Smoked Tobacco Have You Smoked in the Last Year: No Review of Systems Positive: Fever Positive: Abdominal Pain - RUQ, Vomiting, Diarrhea, Nausea All Other Systems Reviewed And Are Negative: Yes Physical Exam - Summary Physical Exam Summary: Appearance: Well-appearing, Well-nourished, lying in bed comfortably Skin: Warm, dry, no obvious rash Eyes: sclera anicteric, no conjunctival pallor ENT: mucous membranes moist, pharynx appears normal Neck: Supple, nontender Respiratory: Clear to auscultation, no signs of respiratory distress Cardiovascular: Normal S1, S2. No murmurs. Normal distal pulses in tibial and radial bilaterally. Abdomen: Soft, tenderness in RUQ over abd without perineal signs, normal active bowel sounds present Musculoskeletal: Normal, Strength/ROM Intact Neurological: A&Ox3, awake and alert, mentation is normal, speech is fluent and appropriate Psychiatric: affect is normal, does not appear anxious or depressed Triage Information Reviewed: Yes Vital Signs On Initial Exam: Initial Vitals Temp Pulse Resp BP Pulse Ox 99.1 F 92 20 120/86 96 09/03/18 02:03 09/03/18 02:03 09/03/18 02:03 09/03/18 02:03 09/03/18 02:03 Vital Signs Reviewed: Yes Diagnostics - Vital Signs Vital Signs Temp Pulse Resp BP Pulse Ox 09/03/18 05:45 18 09/03/18 05:37 81 134/65 91 09/03/18 05:14 81 120/76 100 09/03/18 05:00 85 96 09/03/18 04:37 77 135/68 94 09/03/18 04:07 76 137/83 92 09/03/18 04:00 76 98 09/03/18 03:37 72 123/71 97 09/03/18 03:34 22 09/03/18 03:08 95 93 09/03/18 03:07 92 143/85 94 09/03/18 02:03 99.1 F 92 20 120/86 96 - Laboratory Lab Results: Lab Results 09/03/18 09/03/18 09/03/18 Range/Units 03:17 03:17 03:17 WBC 10.9 H (3.5-10.8) 10^3/ul RBC 5.21 (4.00-5.40) 10^6/ul Hgb 14.4 (12.0-16.0) g/dl Hct 44 (35-47) % MCV 84 (80-97) fL MCH 28 (27-31) pg MCHC 33 (31-36) g/dl RDW 14 (10.5-15) % Plt Count 277 (150-450) 10^3/ul MPV 7.8 (7.4-10.4) fL Neut % (Auto) 70.3 % Lymph % (Auto) 17.3 % Zavala % (Auto) 11.0 % Eos % (Auto) 0.9 % Baso % (Auto) 0.5 % Absolute Neuts (auto) 7.7 (1.5-7.7) 10^3/ul Absolute Lymphs (auto) 1.9 (1.0-4.8) 10^3/ul Absolute Monos (auto) 1.2 H (0-0.8) 10^3/ul Absolute Eos (auto) 0.1 (0-0.6) 10^3/ul Absolute Basos (auto) 0.1 (0-0.2) 10^3/ul Absolute Nucleated RBC 0 10^3/ul Nucleated RBC % 0.1 Sodium 137 (135-145) mmol/L Potassium 3.4 L (3.5-5.0) mmol/L Chloride 101 (101-111) mmol/L Carbon Dioxide 30 (22-32) mmol/L Anion Gap 6 (2-11) mmol/L BUN 15 (6-24) mg/dL Creatinine 0.78 (0.51-0.95) mg/dL Est GFR ( Amer) 91.2 (>60) Est GFR (Non-Af Amer) 75.3 (>60) BUN/Creatinine Ratio 19.2 (8-20) Glucose 136 H (70-100) mg/dL Lactic Acid 0.8 (0.5-2.0) mmol/L Calcium 9.2 (8.6-10.3) mg/dL Total Bilirubin 0.50 (0.2-1.0) mg/dL AST 11 L (13-39) U/L ALT 11 (7-52) U/L Alkaline Phosphatase 69 (34-104) U/L C-Reactive Protein 29.40 H (<8.01) mg/L Total Protein 6.5 (6.4-8.9) g/dL Albumin 3.8 (3.2-5.2) g/dL Globulin 2.7 (2-4) g/dL Albumin/Globulin Ratio 1.4 (1-3) Lipase < 10 L (11.0-82.0) U/L Urine Color Urine Appearance Urine pH (5-9) Ur Specific [place] (1.010-1.030) Urine Protein (Negative) Urine Ketones (Negative) Urine Blood (Negative) Urine Nitrate (Negative) Urine Bilirubin (Negative) Urine Urobilinogen (Negative) Ur Leukocyte Esterase (Negative) Urine WBC (Auto) (Absent) Urine RBC (Auto) (Absent) Ur Squamous Epith Cells (Absent) Urine Bacteria (Absent) Urine Glucose (Negative) 09/03/18 Range/Units 05:15 WBC (3.5-10.8) 10^3/ul RBC (4.00-5.40) 10^6/ul Hgb (12.0-16.0) g/dl Hct (35-47) % MCV (80-97) fL MCH (27-31) pg MCHC (31-36) g/dl RDW (10.5-15) % Plt Count (150-450) 10^3/ul MPV (7.4-10.4) fL Neut % (Auto) % Lymph % (Auto) % Zavala % (Auto) % Eos % (Auto) % Baso % (Auto) % Absolute Neuts (auto) (1.5-7.7) 10^3/ul Absolute Lymphs (auto) (1.0-4.8) 10^3/ul Absolute Monos (auto) (0-0.8) 10^3/ul Absolute Eos (auto) (0-0.6) 10^3/ul Absolute Basos (auto) (0-0.2) 10^3/ul Absolute Nucleated RBC 10^3/ul Nucleated RBC % Sodium (135-145) mmol/L Potassium (3.5-5.0) mmol/L Chloride (101-111) mmol/L Carbon Dioxide (22-32) mmol/L Anion Gap (2-11) mmol/L BUN (6-24) mg/dL Creatinine (0.51-0.95) mg/dL Est GFR ( Amer) (>60) Est GFR (Non-Af Amer) (>60) BUN/Creatinine Ratio (8-20) Glucose (70-100) mg/dL Lactic Acid (0.5-2.0) mmol/L Calcium (8.6-10.3) mg/dL Total Bilirubin (0.2-1.0) mg/dL AST (13-39) U/L ALT (7-52) U/L Alkaline Phosphatase (34-104) U/L C-Reactive Protein (<8.01) mg/L Total Protein (6.4-8.9) g/dL Albumin (3.2-5.2) g/dL Globulin (2-4) g/dL Albumin/Globulin Ratio (1-3) Lipase (11.0-82.0) U/L Urine Color Yellow Urine Appearance Clear Urine pH 6.0 (5-9) Ur Specific [place] 1.005 L (1.010-1.030) Urine Protein Negative (Negative) Urine Ketones Negative (Negative) Urine Blood 1+ A (Negative) Urine Nitrate Negative (Negative) Urine Bilirubin Negative (Negative) Urine Urobilinogen Negative (Negative) Ur Leukocyte Esterase Trace A (Negative) Urine WBC (Auto) Trace(0-5/hpf) (Absent) Urine RBC (Auto) 1+(3-5/hpf) A (Absent) Ur Squamous Epith Cells Present A (Absent) Urine Bacteria 3+ A (Absent) Urine Glucose Negative (Negative) Result Diagrams: 09/03/18 03:17 09/03/18 03:17 Lab Statement: Any lab studies that have been ordered have been reviewed, and results considered in the medical decision making process. Abdominal Pain Fem Course/Dx - Course Course Of Treatment: The patient is a 58 y/o F with a chief complaint of sudden onset nausea and vomiting for 3 days. During onset, she states that she continued to vomit the whole night into the next morning, with a few episodes since then. While her BMs were normal at first, she is now experiencing diarrhea and more RUQ abd pain that is worst now. The pain is aggravated by lying down and alleviated with sitting. She additionally c/o mild fever. Hx of cholecystectomy, hysterectomy, and appendectomy. She takes Nexium. Upon physical examination, the patient exhibits tenderness in the RUQ over the abd without perineal signs. In the ED course, the patient was administered Ns, Zofran, Morphine, and Omnipaque contrast. Bloodwork reveals elevated monos and CRP. UA reveals blood, leukocyte esterase, RBC, epithelial cells, and bacteria. She is diagnosed with SBO. The patient will be a sign-out to Dr. Sarah Avila MD, from Dr. Luke Lerner MD, at change of shift at 0700 pending Abd/Pel CT and disposition. - Diagnoses Provider Diagnoses: SBO (small bowel obstruction) Discharge - Sign-Out/Discharge Documenting (check all that apply): Sign-Out Patient Signing out patient TO: Sarah Avila - Patient will be a sign-out to Dr. Sarah Avila MD, from Dr. Luke Lerner MD, at change of shift at 0700 pending Abd/Pel CT and disposition. Patient Received Moderate/Deep Sedation with Procedure: No - Discharge Plan Condition: Stable Disposition: ADMITTED TO [facility] - Billing Disposition and Condition Condition: STABLE Disposition: Admitted to [facility] - Attestation Statements Document Initiated by Leonides: Yes Documenting Scribe: Esther Pearce Provider For Whom Leonides is Documenting (Include Credential): MD Ruben Kellyibwale Attestation: Esther Cooper scribed for Dr. Luke Lerner MD on 09/04/18 at 0436. Scribe Documentation Reviewed: Yes Provider Attestation: The documentation as recorded by the Esther garcia accurately reflects the service I personally performed and the decisions made by me, Dr. Luke Lerner MD Status of Scribe Document: Viewed
--- NOTE | 2018-09-03 07:17 | ED ---
Progress - Progress Note Progress Note: RECEIVING SIGN OUT FROM DR. LERNER AT SHIFT CHANGE PENDING ABD/PEL CT. A 58 y/o F presents to ED with c/o n/v/d onset three days ago. - Results/Orders Results/Orders: ABD/PEL CT as read by radiologist: IMPRESSION: Dilated loops of small bowel noted measuring up to 3.8 CM with a transition point to collapsed loops noted in the right lower quadrant best seen on axial image 45. Findings are concerning for small bowel obstruction. ED provider has reviewed this report. - Consult/PCP Time Called: 08:20 Consult/PCP: Consulted with Dr. Chaves, surgery Consult Reason/Comments: Recommends admission via hospitalist. - Additional EKG/XRAY/Consults Time Called: 08:30 Consult/PCP: Dr. Pena, hospitalist Reason/Comments: Accepts pt for admission. Re-Evaluation - Re-Evaluation 1 Re-Evaluation Time: 08:03 Change: Worse Comment: Patient's pain is returning, will order morphine. Course/Dx - Course Course Of Treatment: RECEIVING SIGN OUT FROM DR. LERNER AT SHIFT CHANGE PENDING ABD/PEL CT. An 83 y/o F presents to ED with c/o anxiety due to ABX. Pt was recently released for hospital for sepsis secondary to UTI. ABD/PEL CT shows "Dilated loops of small bowel noted measuring up to 3.8 CM with a transition point to collapsed loops noted in the right lower quadrant best seen on axial image 45. Findings are concerning for small bowel obstruction.". Consulted with Dr. Chaves, surgery, who recommends admission via hospitalist services. Consulted with Dr. Pena, hospitalist, who will admit patient. I discussed results with patient. The patient agrees with this plan. - Diagnoses Provider Diagnoses: SBO (small bowel obstruction) Discharge - Sign-Out/Discharge Documenting (check all that apply): Patient Departure - ADMIT, Receiving Sign- Out Receiving patient FROM: Luke Lerner - Pending A/P CT Patient Received Moderate/Deep Sedation with Procedure: No - Discharge Plan Condition: Stable Disposition: ADMITTED TO [facility] Referrals: Blanka Walters MD [Primary Care Provider] - - Billing Disposition and Condition Condition: STABLE Disposition: Admitted to [facility] - Attestation Statements Document Initiated by Scribe: Yes Documenting Scribe: So[facility]Young [facility] Provider For Whom Scribe is Documenting (Include Credential): Dr. Sarah Avila MD Scribe Attestation: I, Jason Burns, scribed for Dr. Sarah Avila MD on 09/03/18 at 1447. Scribe Documentation Reviewed: Yes Provider Attestation: The documentation as recorded by the joseibe, Jason Burns accurately reflects the service I personally performed and the decisions made by me, Dr. Sarah Avila MD Status of Scribe Document: Viewed
[2018-09-03] MEDS ORDERED: NS 0.9% 1000 ML** 1,000 ML IV SCH (08:45)
[2018-09-03] MEDS: Pantoprazole IV* 40 MG IV SCH (09:08)
[2018-09-03] MEDS: Ondansetron INJ* 2 MG/ML VIAL IV SCH ×4 (09:09→20:58)
[2018-09-03] MEDS ORDERED: Phenol 1.4% Spray* 177 ML BTL MT PRN (10:58)
--- NOTE | 2018-09-03 12:40 | CONS ---
CC: Dr. Blanka Walters SURGICAL CONSULTATION DATE OF CONSULTATION: 09/03/2018. The patient was seen in the emergency department. ATTENDING SURGEON: Dr. Anjali Chaves (ANA MARIA Arthur dictating. CHIEF COMPLAINT: Abdominal pain and vomiting. HISTORY OF PRESENT ILLNESS: This is a 58-year-old, generally healthy female with prior abdominal surgeries who had eaten some Turkish food Sunday evening and was vomiting within 30 minutes and that pattern continued over the next 24 hours or so. She was not having predominance of pain at that point. However, 09/02/2018, she was experiencing pain in the periumbilical area that has since moved up to the epigastric region where it has remained. She states pain continued to worsen through the day and night and she decided to come into the ED at around 1:00 a.m. today. She describes the pain as sharp and burning and located in the area between the umbilicus and the xiphoid. She only vomited once yesterday. She did have two episodes of diarrhea yesterday morning , but none since and no flatus since then. No one else had become sick from the Turkish food. She has not had any prior similar episodes. Her previous abdominal surgeries include laparoscopic cholecystectomy and an open total abdominal hysterectomy with bilateral salpingo oophorectomy for precancerous changes with no additional therapy needed. PAST MEDICAL HISTORY: GERD, seasonal and environmental allergies, obesity. PAST SURGICAL HISTORY: Two as noted above, as well as two left knee arthroscopies in 2016 and 2017 for meniscectomy. No reported surgical or anesthesia complications. CURRENT MEDICATIONS: 1. Nexium 40 mg once daily. 2. Fluticasone nasal spray 2 sprays each nostril once daily prn. 3. Cyclobenzaprine 10 mg daily prn for knee spasms (does not use daily). 4. Multivitamin once daily. 5. Albuterol MDI prn (has not used "in ages"). DRUG ALLERGIES: LEVAQUIN (TENDONITIS), CLARITHROMYCIN (GI UPSET). FAMILY HISTORY: Negative for anesthesia problems, bleeding, or clotting disorders. SOCIAL HISTORY: Patient is . Her and daughter accompany her here in the ED. 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 She denies use of tobacco. She drinks less than one drink of alcohol per week and denies any other recreational drug use. REVIEW OF SYSTEMS: General: No recent constitutional symptoms or other acute illnesses, aside from those described in the HPI. HEENT: No problems reported other than dry mouth. Cardiovascular: No history of chest pain, palpitations, or cardiovascular disease. Respiratory: No history of asthma per say, though she has used Albuterol MDI in the past for bronchitis. GI: As above per HPI. She did undergo colonoscopy with Dr. Mcguire in January 2018 with findings including hyperplastic polyps and diverticulosis with recommended follow-up of ten years. : No problems reported. 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 I did not ask her about most recent mammogram or breast exam, though I do see a mammogram report from January 2018 which was negative. Endocrine: No diabetes or thyroid dysfunction. Neuro/Psych: No additions. PHYSICAL EXAM: General: Well-nourished, obese female appearing uncomfortable, but in no acute distress, lying on the ED stretcher. Vital Signs: Height 5'8" , weight 240 pounds, BMI 36.5. Temperature 99.1, blood pressure 130/73, pulse 76, respirations 18, room air saturation 98 percent. Skin: Warm and dry. No suspicious rashes or lesions. HEENT: Pupils equal and round, reactive. EOM's intact. No conjunctival pallor. Oropharynx: Teeth in good repair. Mucus membranes slightly dry. No intraoral lesions. Nasogastric tube in place. Neck : No lymphadenopathy, thyromegaly, or masses. Heart: Regular rate and rhythm. No murmur detected. Lungs: Clear to auscultation. There are a few crackles of the left base. Upper kulkarni are clear. Abdomen: Obese, well-healed lower midline incision. Bowel sounds are present and fairly normoactive. Abdomen: Soft with tenderness limited to the area between the umbilicus and the xiphoid. The remainder of the abdomen is relatively soft and nontender. There are no palpable masses or organomegaly. No palpable hernias. Genitalia and rectal: Not done. Back: No spinous process or CVA tenderness. Extremities: No edema. Neurological: Grossly intact. LABORATORY DATA OF NOTE: CBC: White blood cell count 10,900, hemoglobin 14.4, potassium 3.4, glucose 136. Liver function tests and lipase are normal, lactic acid is normal at 0.8, CRP is elevated at 29. Urinalysis was significant for specific gravity of 1.05 and 1+ blood. DIAGNOSTIC STUDIES: 1. CT scan of the abdomen and pelvis with IV contrast was reviewed personally as well as the report. There is evidence from her prior surgeries. She has evidence of diverticulosis without diverticulitis. There are dilated loops of small bowel with an apparent transition point in the right lower quadrant consistent with possible small bowel obstruction. 2. Plain film of the abdomen for position of NG tube was also assessed showing dilated small bowel loops with NG tube within the body of the stomach. IMPRESSION: Small bowel obstruction. PLAN: Admission for IV hydration, bowel rest, nasogastric decompression, and serial exams. Will plan to check a plain film in the morning. There are no indications that the patient needs immediate surgery, but we will follow closely and she understands that at times surgery is required for resolution. The case will be discussed with Dr. Chaves who will also see her for confirmation of plan. ANA MARIA ARTHUR [id number]/[facility] #: [id number] CAPRICE
[2018-09-03] MEDS: Morphine 4 MG/ML VIAL (1 ml) 4 MG/ML VIAL IV PRN ×2 (13:29→17:34)
--- NOTE | 2018-09-03 17:26 | ADMNOTE ---
Subjective Date of Service: 09/03/18 Interval History: HISTORY AND PHYSICAL PCP: Dr. Walters CC: vomiting 27 times HPI: Patient is 58 year old woman with minimal past medical history, who developed severe vomiting Sunday evening after eating ken[place] food. She states she vomited 27 times. She had some continued vomiting sunday, and some diarrhea Sunday, and attributed the illness to "food poisoning." However today she had continued vomiting and abdominal pain, and came to ER. 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, denies tobacco use, drinks wine rarely, no drug use Past Medical History: Findings - PMH: GERD, obesity; PSH: cholecystectomy, appendectomy, hysterectomy Review of Systems - Measurements Intake and Output: Intake and Output Last 24 Hours 09/01/18 09/02/18 09/03/18 09/04/18 06:59 06:59 06:59 06:59 Weight 108.862 kg - Review of Systems Constitutional Symptoms: Positive: Weakness Dermatology: Positive: Normal HEENT: Positive: Normal Eyes: Positive: Normal Thyroid: Positive: Normal Pulmonary: Positive: Normal Cardiology: Positive: Normal Gastroenterology: Positive: Abdominal Pain, Nausea, Vomiting, Anorexia, Diarrhea Genital - Urinary: Positive: Normal Endocrinology: Positive: Normal Neurology: Positive: Normal Psychiatry: Positive: Normal Objective Active Medications: Home Medications: Nexium 20 mg po qd Flonase Vital Signs - 8 hr 09/03/18 09/03/18 09/03/18 10:10 10:45 11:00 Temperature Pulse Rate 80 71 74 Respiratory Rate Blood Pressure 129/67 (mmHg) O2 Sat by Pulse 99 84 96 Oximetry 09/03/18 09/03/18 09/03/18 11:14 11:45 12:00 Temperature Pulse Rate 73 73 71 Respiratory Rate Blood Pressure 124/66 116/64 (mmHg) O2 Sat by Pulse 98 97 98 Oximetry 09/03/18 09/03/18 09/03/18 12:14 12:45 13:00 Temperature Pulse Rate 75 76 73 Respiratory Rate Blood Pressure 130/75 120/74 (mmHg) O2 Sat by Pulse 100 100 100 Oximetry 09/03/18 09/03/18 09/03/18 13:14 13:27 13:29 Temperature Pulse Rate 78 87 Respiratory 16 Rate Blood Pressure 118/65 125/80 (mmHg) O2 Sat by Pulse 100 100 Oximetry 09/03/18 09/03/18 09/03/18 13:45 14:00 14:15 Temperature Pulse Rate 78 85 78 Respiratory Rate Blood Pressure 135/65 119/69 (mmHg) O2 Sat by Pulse 99 97 100 Oximetry 09/03/18 09/03/18 09/03/18 14:45 15:00 15:02 Temperature 37.2 C Pulse Rate 82 78 82 Respiratory 16 Rate Blood Pressure 113/60 113/60 (mmHg) O2 Sat by Pulse 99 100 99 Oximetry 09/03/18 09/03/18 09/03/18 15:15 15:45 16:00 Temperature Pulse Rate 82 77 76 Respiratory Rate Blood Pressure 121/66 125/68 (mmHg) O2 Sat by Pulse 99 100 99 Oximetry 09/03/18 09/03/18 16:15 16:55 Temperature 36.7 C Pulse Rate 74 82 Respiratory 16 Rate Blood Pressure 127/63 125/47 (mmHg) O2 Sat by Pulse 100 98 Oximetry Oxygen Devices in Use Now: None Appearance: alert, no distress Eyes: No Scleral Icterus Ears/Nose/Mouth/Throat: NL Teeth, Lips, Gums, - - NG tube in place Neck: NL Appearance and Movements; NL JVP Respiratory: Symmetrical Chest Expansion and Respiratory Effort, Clear to Auscultation Cardiovascular: NL Sounds; No Murmurs; No JVD Abdominal: - - obese, soft, tender RLQ, +BS, no masses Extremities: No Edema Skin: No Rash or Ulcers Neurological: Alert and Oriented x 3 Lines/Tubes/Other Access: Clean, Dry and Intact Peripheral IV Result Diagrams: 09/03/18 03:17 09/03/18 03:17 Additional Lab and Data: Lab Results 09/03/18 09/03/18 09/03/18 Range/Units 03:17 03:17 03:17 WBC 10.9 H (3.5-10.8) 10^3/ul RBC 5.21 (4.00-5.40) 10^6/ul Hgb 14.4 (12.0-16.0) g/dl Hct 44 (35-47) % MCV 84 (80-97) fL MCH 28 (27-31) pg MCHC 33 (31-36) g/dl RDW 14 (10.5-15) % Plt Count 277 (150-450) 10^3/ul MPV 7.8 (7.4-10.4) fL Neut % (Auto) 70.3 % Lymph % (Auto) 17.3 % [place] % (Auto) 11.0 % Eos % (Auto) 0.9 % Baso % (Auto) 0.5 % Absolute Neuts (auto) 7.7 (1.5-7.7) 10^3/ul Absolute Lymphs (auto) 1.9 (1.0-4.8) 10^3/ul Absolute Monos (auto) 1.2 H (0-0.8) 10^3/ul Absolute Eos (auto) 0.1 (0-0.6) 10^3/ul Absolute Basos (auto) 0.1 (0-0.2) 10^3/ul Absolute Nucleated RBC 0 10^3/ul Nucleated RBC % 0.1 Sodium 137 (135-145) mmol/L Potassium 3.4 L (3.5-5.0) mmol/L Chloride 101 (101-111) mmol/L Carbon Dioxide 30 (22-32) mmol/L Anion Gap 6 (2-11) mmol/L BUN 15 (6-24) mg/dL Creatinine 0.78 (0.51-0.95) mg/dL Est GFR ( Amer) 91.2 (>60) Est GFR (Non-Af Amer) 75.3 (>60) BUN/Creatinine Ratio 19.2 (8-20) Glucose 136 H (70-100) mg/dL Lactic Acid 0.8 (0.5-2.0) mmol/L Calcium 9.2 (8.6-10.3) mg/dL Total Bilirubin 0.50 (0.2-1.0) mg/dL AST 11 L (13-39) U/L ALT 11 (7-52) U/L Alkaline Phosphatase 69 (34-104) U/L C-Reactive Protein 29.40 H (<8.01) mg/L Total Protein 6.5 (6.4-8.9) g/dL Albumin 3.8 (3.2-5.2) g/dL Globulin 2.7 (2-4) g/dL Albumin/Globulin Ratio 1.4 (1-3) Lipase < 10 L (11.0-82.0) U/L Urine Color Urine Appearance Urine pH (5-9) Ur Specific [place] (1.010-1.030) Urine Protein (Negative) Urine Ketones (Negative) Urine Blood (Negative) Urine Nitrate (Negative) Urine Bilirubin (Negative) Urine Urobilinogen (Negative) Ur Leukocyte Esterase (Negative) Urine WBC (Auto) (Absent) Urine RBC (Auto) (Absent) Ur Squamous Epith Cells (Absent) Urine Bacteria (Absent) Urine Glucose (Negative) 09/03/18 Range/Units 05:15 WBC (3.5-10.8) 10^3/ul RBC (4.00-5.40) 10^6/ul Hgb (12.0-16.0) g/dl Hct (35-47) % MCV (80-97) fL MCH (27-31) pg MCHC (31-36) g/dl RDW (10.5-15) % Plt Count (150-450) 10^3/ul MPV (7.4-10.4) fL Neut % (Auto) % Lymph % (Auto) % [place] % (Auto) % Eos % (Auto) % Baso % (Auto) % Absolute Neuts (auto) (1.5-7.7) 10^3/ul Absolute Lymphs (auto) (1.0-4.8) 10^3/ul Absolute Monos (auto) (0-0.8) 10^3/ul Absolute Eos (auto) (0-0.6) 10^3/ul Absolute Basos (auto) (0-0.2) 10^3/ul Absolute Nucleated RBC 10^3/ul Nucleated RBC % Sodium (135-145) mmol/L Potassium (3.5-5.0) mmol/L Chloride (101-111) mmol/L Carbon Dioxide (22-32) mmol/L Anion Gap (2-11) mmol/L BUN (6-24) mg/dL Creatinine (0.51-0.95) mg/dL Est GFR ( Amer) (>60) Est GFR (Non-Af Amer) (>60) BUN/Creatinine Ratio (8-20) Glucose (70-100) mg/dL Lactic Acid (0.5-2.0) mmol/L Calcium (8.6-10.3) mg/dL Total Bilirubin (0.2-1.0) mg/dL AST (13-39) U/L ALT (7-52) U/L Alkaline Phosphatase (34-104) U/L C-Reactive Protein (<8.01) mg/L Total Protein (6.4-8.9) g/dL Albumin (3.2-5.2) g/dL Globulin (2-4) g/dL Albumin/Globulin Ratio (1-3) Lipase (11.0-82.0) U/L Urine Color Yellow Urine Appearance Clear Urine pH 6.0 (5-9) Ur Specific [place] 1.005 L (1.010-1.030) Urine Protein Negative (Negative) Urine Ketones Negative (Negative) Urine Blood 1+ A (Negative) Urine Nitrate Negative (Negative) Urine Bilirubin Negative (Negative) Urine Urobilinogen Negative (Negative) Ur Leukocyte Esterase Trace A (Negative) Urine WBC (Auto) Trace(0-5/hpf) (Absent) Urine RBC (Auto) 1+(3-5/hpf) A (Absent) Ur Squamous Epith Cells Present A (Absent) Urine Bacteria 3+ A (Absent) Urine Glucose Negative (Negative) Diagnostic Imaging: Abdominal/Pelvis CT: small bowel obstruction, transition point in RLQ Assess/Plan/Problems-Billing Assessment: 58 year old with small bowel obstruction presumed due to adhesions - Patient Problems (1) Small bowel obstruction due to adhesions Current Visit: Yes Status: Acute Priority: High Code(s): K56.50 - INTESTNL ADHESIONS, UNSP TO PARTIAL VERSUS COMPLETE OBST SNOMED Code(s): 581781171 Comment: -Patient requires admission to provide hydration, bowel rest. -Pain control and anti-emetics are available -Appreciate input by surgical team, we will follow along with you (2) DVT prophylaxis Current Visit: Yes Status: Acute Priority: Low Code(s): YFU3218 - SNOMED Code(s): 467140617 Comment: SC heparin Status and Disposition: inpatient
[2018-09-03] MEDS ORDERED: NS 0.9% w/ 20 Meq KCL 1000 ML* 1,000 ML IV SCH (18:00)
--- NOTE | 2018-09-03 18:16 | PN ---
Progress Note - Progress Note Date of Service: 09/03/18 Note: Surgery Progress Note Please see full dictated H&P by Pepe Del Toro. Briefly, this patient is a 58 yo F with a surgical history significant for a laparoscopic cholecystectomy and hysterectomy who presents with abdominal pain. She notes Sunday night she had some bad [place] food and started profusely vomiting after eating it. She developed some mid abdominal pain Sunday that progressively got worse. She last had liquid BM yesterday. No flatus today. She was seen in the ED where a CT abdomen/pelvis showed a SBO with transition point in the RLQ. I examined the patient and she continues to have abdominal tenderness requiring repeated morphine administration. I reviewed her vitals and labs and CT scan. VSS, and WBC 10.[address] was reviewed with Dr. Haley and I am concerned about the mesenteric swirling with some edema. I spoke to patient about these findings. I think this is concerning for a possible internal hernia. I have obtained informed consent for a dx laparoscopy, possible exploratory laparotomy, possible bowel resection and possible ostomy. Risks include but are not limited to bleeding, infection, injury to nearby anatomic structures. She understands and wishes to proceed.
[2018-09-03] MEDS ORDERED: ceFAZolin 2 GM in NS PREMIX(*) 2 GM/100 ML BAG IVPB ONE (19:25)
[2018-09-03] MEDS ORDERED: Ondansetron INJ* 2 MG/ML VIAL ONE (19:46)
[2018-09-03] MEDS ORDERED: Lidocaine 2% PF * 5 ML VIAL ONE (19:46)
[2018-09-03] MEDS ORDERED: Dexamethasone IV* 4 MG/ML 1 ML (4 MG) ONE ×2 (19:46→19:50)
[2018-09-03] MEDS ORDERED: Propofol* 10 MG/ML 20 ML BTL ONE (19:46)
[2018-09-03] MEDS ORDERED: fentaNYL* 50 MCG/ML 2 ML VIAL (100 MCG VIAL) ONE (19:47)
[2018-09-03] MEDS ORDERED: Midazolam* 1 MG/ML 5 ML VIAL (5 MG) ONE (19:47)
[2018-09-03] MEDS ORDERED: Cisatracurium* 2 MG/ML MDV 5 ML ONE (19:47)
[2018-09-03] MEDS ORDERED: Succinylcholine* 20 MG/ML 10 ML VIAL ONE (19:50)
[2018-09-03] MEDS ORDERED: Bupivacaine 0.25% SDV PF* 10 ML VIAL INJ ONE (19:54)
[2018-09-03] MEDS ORDERED: EPHEDrine (Pressors)* 50 MG/ML VIAL ONE (20:56)
[2018-09-03] MEDS ORDERED: Phenylephrine INJ* 10 MG/ML 1 ML VIAL (10 MG) ONE (20:56)
[2018-09-03] MEDS ORDERED: Ketorolac INJ* 30 MG/ML 1 ML VIAL ONE (21:30)
[2018-09-03] MEDS ORDERED: Glycopyrrolate IV* 0.2 MG/ML 1 ML VIAL ONE (21:30)
[2018-09-03] MEDS ORDERED: Neostigmine Methylsulfate* 1 MG/ML 10 ML VIAL (1 mg/ml) ONE (21:32)
[2018-09-03] MEDS ORDERED: Naloxone* 0.4 MG/ML 1 ML VIAL IV PRN (22:06)
[2018-09-03] MEDS ORDERED: fentaNYL* 50 MCG/ML 2 ML VIAL (100 MCG VIAL) IV PRN (22:06)
[2018-09-03] MEDS ORDERED: Ondansetron INJ* 2 MG/ML VIAL IV PRN (22:06)
[2018-09-03] MEDS ORDERED: Ketorolac INJ* 30 MG/ML 1 ML VIAL IV PRN (22:12)
--- NOTE | 2018-09-03 22:55 | OP ---
DATE OF OPERATION: 09/03/18 - ROOM #348 DATE OF : 56. SERVICE: General Surgery. SURGEON: Anjali Chaves MD [employer] MA[employer]GER: Ramesh Morelos MD ANESTHESIOLOGIST: Dr. Sreedhar Serrano. ANESTHESIA: General endotracheal anesthesia. PRE-OP DIAGNOSIS: Small bowel obstruction. POST-OP DIAGNOSIS: Small bowel obstruction with internal hernia. OPERATIVE PROCEDURE: Diagnostic laparoscopy and lysis of adhesions. ESTIMATED BLOOD LOSS: Minimal, less than 10 cc. INDICATIONS FOR SURGERY: Ms. Silvestre is a 58-year-old female with abdominal surgical history significant for hysterectomy and alaparoscopic cholecystectomy , who presented to the emergency room with 2 days of worsening abdominal pain after a day of severe nausea and vomiting. She says that her abdominal pain had escalated to the point where it was difficult for her to move without having pain. She was evaluated in the emergency room where a CT scan showed a small bowel obstruction with a transition point in the right lower quadrant. Throughout the day, the patient required continued narcotics in order to alleviate her pain. She was continuing to have progressive tenderness in the epigastric area, and review of the abdominal CT scan with our radiologist in house was concerning for mesenteric swirling with some stranding in the mesentery. Given this finding as well as her tenderness, there was a concern that she may have had an internal hernia, therefore, informed consent was obtained for diagnostic laparoscopy and lysis of adhesions with possible bowel resection, possible ostomy. She understood the risks, benefits, and alternatives of the procedure and she wished to proceed. DESCRIPTION OF PROCEDURE: The patient was brought back to the operating room and placed on the operating table in supine position. Sequential compression devices were placed on the bilateral lower extremities for DVT prophylaxis. Antibiotics with Ancef was administered prior to incision. The abdomen was prepped and draped in normal sterile fashion and the left arm was tucked. Prior to beginning the surgery, a time-out was performed verifying the patient' s name, MR number, and the procedure to be performed. A 0.25% Marcaine was infiltrated into the left upper quadrant. A small incision was made and the abdomen was entered using the Optiview technique in the left upper quadrant. Once the abdomen was entered, insufflation was obtained to 15 mmHg and a 5-30 laparoscope was placed into the abdominal cavity. General inspection of the abdominal cavity revealed that there was no apparent injury that had been made upon entry into the abdomen and it was noted that there were many adhesions of the omentum to the anterior abdominal wall. Next, an additional 5-mm trocar was placed in the left lower quadrant and another in the left mid quadrant and a fourth 5-mm trocar was placed as well as in the left mid abdomen. Next, the omental adhesions to the anterior abdominal wall were taken down using combination of blunt dissection and electrocautery. Once this was done, an additional 5mm trocar was placed in the epigastrum in order to better view the abdominal cavity. The entire abdomen was inspected and it was noted that there were loops of hyperemic distended small bowel loops as well as decompressed loops in the pelvis. There was also turbid green fluid throughout the abdomen, which was suctioned out. It appeared that there was a thick peritoneal band extending from the terminal ileum across to the left abdomen, which was causing an internal hernia. Once the peritoneal band was released and several other adhesions of the small bowel were lysed, the previously noted decompressed bowel and right colon became dilated with air. The small bowel was run proximally and was noted to all be dilated with no significant abnormalities. At this point, it was felt that the transition point was identified and released and that the remaining decompressed bowel clearly became dilated consistent with release of the small bowel obstruction. Therefore, all the trocars were removed under direct visualization. Desufflation was obtained and the skin incisions were closed using 4-0 Monocryl suture and Dermabond was used to close the incisions. The patient's anesthesia was reversed and she was taken to the PACU in stable condition. At the end of the case, all counts were correct and I was present during the entirety of the case. [id number]/[facility] #: [id number] [facility] CENTERRoyal
[2018-09-03] MEDS ORDERED: Lactated Ringers 1000 ML Bag* 1,000 ML IV SCH (23:00)
[2018-09-04] MEDS: Ondansetron INJ* 2 MG/ML VIAL IV SCH ×5 (01:22→17:13)
[2018-09-04 06:06] LABS: ABS Basophils 0 10^3/ul (0-0.2); ABS Eosinophils 0 10^3/ul (0-0.6); ABS Monocytes 0.3 10^3/ul (0-0.8); ABS Neutrophils 4.9 10^3/ul (1.5-7.7); ABS Nucleated RBC 0 10^3/ul; Eosinophil % 0.1 %; Hematocrit 36 % (35-47); Hemoglobin 11.8 g/dl (12.0-16.0); Lymphocyte % 15.8 %; Mean Corpuscular HGB Conc 33 g/dl (31-36); Mean Corpuscular Hemoglobin 28 pg (27-31); Mean Corpuscular Volume 84 fL (80-97); Mean Platelet Volume 7.7 fL (7.4-10.4); Nucleated Red Blood Cells % 0; Platelet Count 218 10^3/ul (150-450); Red Blood Count 4.25 10^6/ul (4.00-5.40); Red Cell Distribution Width 14 % (10.5-15); White Blood Count 6.2 10^3/ul (3.5-10.8)
[2018-09-04 06:23] LABS: BUN/Creatinine Ratio 22.9 (8-20); Calcium 8.3 mg/dL (8.6-10.3); EGFR African American 103.3 (>60); EGFR Non-African American 85.4 (>60); Potassium 3.9 mmol/L (3.5-5.0)
[2018-09-04] MEDS ORDERED: Heparin VIAL(*) 5000 UNITS/ML VIAL (FIVE THOUSAND) SUBCUT SCH (09:00)
--- NOTE | 2018-09-04 10:59 | PN ---
Progress Note - Progress Note Date of Service: 09/04/18 Note: Surgery Progress Note S: Patient doing well this morning. She has no abdominal pain, just some soreness. She is passing flatus. No emesis. O: Vital Signs: Temp Pulse Resp BP Pulse Ox 97.9 F 88 14 111/54 96 09/04/18 04:57 09/04/18 04:57 09/04/18 04:57 09/04/18 04:57 09/04/18 04:57 Laboratory Last Values WBC 6.2 10^3/ul (3.5-10.8) 09/04/18 05:35 RBC 4.25 10^6/ul (4.00-5.40) 09/04/18 05:35 Hgb 11.8 g/dl (12.0-16.0) L 09/04/18 05:35 Hct 36 % (35-47) 09/04/18 05:35 MCV 84 fL (80-97) 09/04/18 05:35 MCH 28 pg (27-31) 09/04/18 05:35 MCHC 33 g/dl (31-36) 09/04/18 05:35 RDW 14 % (10.5-15) 09/04/18 05:35 Plt Count 218 10^3/ul (150-450) 09/04/18 05:35 MPV 7.7 fL (7.4-10.4) 09/04/18 05:35 Neut % (Auto) 79.1 % 09/04/18 05:35 Lymph % (Auto) 15.8 % 09/04/18 05:35 [place] % (Auto) 4.8 % 09/04/18 05:35 Eos % (Auto) 0.1 % 09/04/18 05:35 Baso % (Auto) 0.2 % 09/04/18 05:35 Absolute Neuts (auto) 4.9 10^3/ul (1.5-7.7) 09/04/18 05:35 Absolute Lymphs (auto) 1.0 10^3/ul (1.0-4.8) 09/04/18 05:35 Absolute Monos (auto) 0.3 10^3/ul (0-0.8) 09/04/18 05:35 Absolute Eos (auto) 0 10^3/ul (0-0.6) 09/04/18 05:35 Absolute Basos (auto) 0 10^3/ul (0-0.2) 09/04/18 05:35 Absolute Nucleated RBC 0 10^3/ul 09/04/18 05:35 Nucleated RBC % 0 09/04/18 05:35 Sodium 142 mmol/L (135-145) 09/04/18 05:35 Potassium 3.9 mmol/L (3.5-5.0) 09/04/18 05:35 Chloride 105 mmol/L (101-111) 09/04/18 05:35 Carbon Dioxide 27 mmol/L (22-32) 09/04/18 05:35 Anion Gap 10 mmol/L (2-11) 09/04/18 05:35 BUN 16 mg/dL (6-24) 09/04/18 05:35 Creatinine 0.70 mg/dL (0.51-0.95) 09/04/18 05:35 Est GFR ( Amer) 103.3 (>60) 09/04/18 05:35 Est GFR (Non-Af Amer) 85.4 (>60) 09/04/18 05:35 BUN/Creatinine Ratio 22.9 (8-20) H 09/04/18 05:35 Glucose 121 mg/dL (70-100) H 09/04/18 05:35 Lactic Acid 0.8 mmol/L (0.5-2.0) 09/03/18 03:17 Calcium 8.3 mg/dL (8.6-10.3) L 09/04/18 05:35 Total Bilirubin 0.50 mg/dL (0.2-1.0) 09/03/18 03:17 AST 11 U/L (13-39) L 09/03/18 03:17 ALT 11 U/L (7-52) 09/03/18 03:17 Alkaline Phosphatase 69 U/L (34-104) 09/03/18 03:17 C-Reactive Protein 29.40 mg/L (<8.01) H 09/03/18 03:17 Total Protein 6.5 g/dL (6.4-8.9) 09/03/18 03:17 Albumin 3.8 g/dL (3.2-5.2) 09/03/18 03:17 Globulin 2.7 g/dL (2-4) 09/03/18 03:17 Albumin/Globulin Ratio 1.4 (1-3) 09/03/18 03:17 Lipase < 10 U/L (11.0-82.0) L 09/03/18 03:17 Urine Color Yellow 09/03/18 05:15 Urine Appearance Clear 09/03/18 05:15 Urine pH 6.0 (5-9) 09/03/18 05:15 Ur Specific [place] 1.005 (1.010-1.030) L 09/03/18 05:15 Urine Protein Negative (Negative) 09/03/18 05:15 Urine Ketones Negative (Negative) 09/03/18 05:15 Urine Blood 1+ (Negative) A 09/03/18 05:15 Urine Nitrate Negative (Negative) 09/03/18 05:15 Urine Bilirubin Negative (Negative) 09/03/18 05:15 Urine Urobilinogen Negative (Negative) 09/03/18 05:15 Ur Leukocyte Esterase Trace (Negative) A 09/03/18 05:15 Urine WBC (Auto) Trace(0-5/hpf) (Absent) 09/03/18 05:15 Urine RBC (Auto) 1+(3-5/hpf) (Absent) A 09/03/18 05:15 Ur Squamous Epith Cells Present (Absent) A 09/03/18 05:15 Urine Bacteria 3+ (Absent) A 09/03/18 05:15 Urine Glucose Negative (Negative) 09/03/18 05:15 Intake & Output 09/03/18 09/04/18 09/04/18 22:59 06:59 14:59 Intake Total 1200 0 980 Output Total 0 Balance 1200 0 980 Weight 257 lb 4.8 oz Intake: IV Fluids 1200 980 LR 1200 980 Oral 0 Output: Urine 0 Other: # Bowel Movements 0 Abd: soft, nontender, nondistended, incisions c/d/i A/P: 58 F with SBO concerning for internal hernia, POD 1 from dx lap and lysis of adhesions. - CLD today - HLIV - Will see how patient does with advancing diet, likely DC home tomorrow.
[2018-09-04] MEDS: Pantoprazole IV* 40 MG IV SCH (13:12)
[2018-09-04 15:52] VITALS: BP 126/88
--- NOTE | 2018-09-04 20:58 | DS ---
DISCHARGE SUMMARY: DATE OF ADMISSION: 09/03/18 DATE OF DISCHARGE: 09/04/18 SERVICE: General Surgery. ATTENDING SURGEON: Dr. Anjali Chaves. ADMISSION DIAGNOSIS: Small bowel obstruction. HOSPITAL COURSE: Ms. Silvestre is a 58-year-old female who presented to the emergency room with complaints of abdominal pain as well as a history of nausea and vomiting. She was found on CT scan to have a small bowel obstruction with a transition point in the right lower quadrant. Further review of the CT scan show that there may have been a volvulus from internal hernia given the swirling of the mesentery. Throughout the day, she continued to have persistent abdominal pain requiring narcotic medications. Therefore, she was determined to be an appropriate candidate for a diagnostic laparoscopy and lysis of adhesions, which she underwent on the evening of 09/03/18. The intraoperative findings were significant for many adhesions at the anterior abdominal wall as well as a peritoneal band from the terminal ileum to the left abdomen that was causing internal hernia. After this band was lysed, the bowel obstruction was noted to have resolved and the surgery was completed. On the day of discharge on postoperative day 1, she was doing extremely well. She was without significant pain and she was tolerating clears and some soft food by the end of the day, she was having flatus and she was eager to go home. I reviewed the return precautions with the patient and her and they agreed to return for fevers, chills, nausea, vomiting, worsening abdominal pain. I also told the patient in follow up that her urine culture grew back e.coli, but this is likely colonization as she was afebrile, did not have a WBC and had no dysuria. I told her if she developed dyuria or symptoms of a UTI then she should see her primary doctor for evaluation and antibiotics. DISCHARGE MEDICATIONS: None. DISCHARGE EXAM: Abdomen is soft, nontender, nondistended. Incision is clean, dry and intact. Vital Signs: Temperature is 98.6, pulse is 86, respiratory rate is 14, O2 sat 96% on room air, blood pressure is 126/88. DISPOSITION: Home. CONDITION: Good. DISCHARGE INSTRUCTIONS: The patient was given a handout with discharge instructions and was told to follow up in the office in 1 week. A note was provided to her employer so that she can return to work on 09/17/18. [id number]/[facility] #: [id number] MTDD
== END 2018-09-04 18:03 | disposition home or self-care (01) | DRG 224 ==
LOC: ED 01:58 → MED 08:36 → SSU 22:52
PROVIDERS: ADMIT Internal Medicine; ATTEND Surgery
PROC: 0DNW4ZZ Release Peritoneum, Percutaneous Endoscopic Approach (ICD-10-PCS; principal; 2018-09-03 20:12)
DX: K46.0 Unspecified abdominal hernia with obstruction, without gangrene (principal); K21.9 Gastro-esophageal reflux disease without esophagitis; M19.90 Unspecified osteoarthritis, unspecified site; E66.9 Obesity, unspecified; F41.9 Anxiety disorder, unspecified; K57.90 Diverticulosis of intestine, part unspecified, without perforation or abscess without bleeding; Z90.710 Acquired absence of both cervix and uterus; Z90.49 Acquired absence of other specified parts of digestive tract; Z88.1 Allergy status to other antibiotic agents; Z88.0 Allergy status to penicillin; Z72.89 Other problems related to lifestyle; Z68.36 Body mass index [BMI] 36.0-36.9, adult; Z86.010 Personal history of colon polyps; Z91.040 Latex allergy status; Z91.018 Allergy to other foods; Z82.49 Family history of ischemic heart disease and other diseases of the circulatory system
CPT/HCPCS: 36415; 74018; 74019; 74177; 80048; 80053; 81003; 81015; 83605; 83690; 85025; 86140; 87077; 87086; 87186; 99284; J0330; J0690; J1100; J1644; J1885; J2250; J2270; J2405; J2704; J2710; J3010; J3490; Q9967

== ENCOUNTER 2019-05-27 07:01 | Inpatient (IN) | payer BC, OTHER ==
--- NOTE | 2019-05-15 08:37 | HP ---
HISTORY AND PHYSICAL: DATE OF ADMISSION/SURGERY: 05/27/19 DATE OF OFFICE VISIT: 05/14/19 SURGEON: Karen Garza MD * (DICTATED BY ANA MARIA MOTA) PROCEDURE: Left total knee arthroplasty. CHIEF COMPLAINT: Left knee pain. HISTORY OF PRESENT ILLNESS: Ms. Silvestre is a 59-year-old female with complaints of left knee pain. She has failed conservative treatment and elected to proceed with a left total knee arthroplasty. PAST MEDICAL HISTORY: 1. Endometrial cancer. 2. GERD. PAST SURGICAL HISTORY: 1. Bilateral knee arthroscopies. 2. Cholecystectomy. 3. Hysterectomy. 4. Laparotomy for bowel obstruction. CURRENT MEDICATIONS: 1. Flexeril every 8 hours as needed. 2. Azelastine nasal spray. 3. Omeprazole 40 mg a day. 4. Ventolin HFA as needed. 5. Ibuprofen as needed. 6. Claritin daily. 7. Flonase daily. 8. Multivitamin. ALLERGIES: To CLARITHROMYCIN, LEVAQUIN, LATEX, and CLINDAMYCIN. FAMILY HISTORY: Cancer. SOCIAL HISTORY: She is a 59-year-old female. She lives with her . She does not smoke or use drugs. She uses occasional alcohol. REVIEW OF SYSTEMS: A complete 14-point review of systems was reviewed with the patient and is positive for GERD. She denies history of DVT, PE, hepatitis, HIV or anesthesia problems. PHYSICAL EXAMINATION GENERAL: She is well developed, well nourished, in no acute distress. VITAL SIGNS: She stands 5 feet 7 inches tall, weighs 267 pounds. Blood pressure is 132/80 and heart rate is 70. HEENT: Normocephalic, atraumatic. NECK: Supple. No palpable lymph nodes. PULMONARY: The lungs are clear to auscultation bilaterally. CARDIO: Regular rate and rhythm. Strong S1 and S2. ABDOMEN: Soft, nontender, nondistended. NEUROLOGICAL: She is alert and oriented x3. MUSCULOSKELETAL: Left lower extremity: The skin is intact. There are no open wounds or abrasions. There is a moderate effusion of the left knee joint. She has some tenderness over the medial and lateral joint line. Range of motion is 10 to 120 degrees of flexion with patellofemoral crepitus. She is able to dorsiflex and plantar flex. She has a 2+ dorsalis pedis pulse and intact sensation. ASSESSMENT AND PLAN: Ms. Silvestre is a 59-year-old female with end-stage osteoarthritis of the left knee. She has failed conservative treatment and elected to proceed with a left total knee arthroplasty. The surgery is scheduled for 05/27/[address] Garza discussed the risks and benefits of the surgery at today's visit and all of her questions were answered. She will follow up with Dr. Garza 2 weeks after the surgery. ANA MARIA MOTA [id number]/[facility] #: [id number] [facility]
[~2019-05-27 07:01] MED LIST changes: +Acetaminophen IV 1GM/100ML * 1,000 MG/100 ML VIAL IVPB ONE; -Buffered Lidocaine 0.9% SYRIN* 5 ML/SYR SYRINGE INTRADERM ONE; +Buffered Lidocaine 1% SYRIN* 1 ML/SYRINGE INTRADERM ONE; +Dexamethasone IV* 4 MG/ML 1 ML (4 MG) IV SLOW PU ONE; +Gabapentin CAP(*) 300 MG PO ONE; +Lactated Ringers 1000 ML Bag* 1,000 ML IV SCH; +celeCOXIB CAP* 200 MG PO ONE
[2019-05-27] MEDS ORDERED: ROPIVACAINE 5 MG/ML 30 ML BTL (0.5%) ONE (07:31)
[2019-05-27] MEDS ORDERED: celeCOXIB CAP* 200 MG ONE (07:33)
[2019-05-27] MEDS ORDERED: Dexamethasone IV* 4 MG/ML 1 ML (4 MG) ONE (07:33)
[2019-05-27] MEDS ORDERED: Gabapentin CAP(*) 300 MG ONE (07:33)
[2019-05-27] MEDS ORDERED: Acetaminophen IV 1GM/100ML * 100 ML ONE (07:34)
[2019-05-27] MEDS ORDERED: ceFAZolin 2 GM in NS PREMIX(*) 2 GM/100 ML BAG IVPB ONE (07:34)
[2019-05-27] MEDS ORDERED: fentaNYL* 50 MCG/ML 2 ML VIAL (100 MCG VIAL) ONE (07:42)
[2019-05-27] MEDS ORDERED: Midazolam* 1 MG/ML 2 ML VIAL (2 MG) ONE ×3 (07:42→09:20)
[2019-05-27] MEDS ORDERED: Lidocaine 2% PF * 5 ML VIAL ONE (07:42)
[2019-05-27] MEDS ORDERED: Bupivacaine 0.5% SDV PF* 30ML VIAL ONE (08:34)
[2019-05-27] MEDS ORDERED: Tranexamic Acid 1,000 MG in NS 0.9% 50 ML IV ONE (09:00)
[2019-05-27] MEDS ORDERED: Morphine 4 MG/ML VIAL (1 ml) 4 MG/ML VIAL IV PRN (10:08)
[2019-05-27] MEDS ORDERED: Ondansetron INJ* 2 MG/ML VIAL IV PRN ×2 (10:08→11:03)
[2019-05-27] MEDS ORDERED: Naloxone* 0.4 MG/ML 1 ML VIAL IV PRN (10:08)
[2019-05-27] MEDS ORDERED: Propofol* 10 MG/ML 20 ML BTL ONE (10:17)
[2019-05-27] MEDS ORDERED: diPHENhydraMINE IV* 50 MG/ML 1 ml VIAL (BENADRYL) IV PRN (11:03)
[2019-05-27] MEDS ORDERED: diPHENhydraMINE PO* 25 MG PO PRN (11:03)
[2019-05-27] MEDS ORDERED: Polyethylene Glycol 3350* 17 GM PACKET PO PRN (11:03)
[2019-05-27] MEDS ORDERED: Morphine INJ* 2 MG/ML 1 ML SYRINGE (TWO MG - NEW SYRINGE VERSION) IV PRN (11:03)
[2019-05-27] MEDS ORDERED: Cyclobenzaprine TAB* 10 MG PO PRN (11:03)
[2019-05-27] MEDS ORDERED: Ondansetron TAB* 4 MG PO PRN (11:03)
[2019-05-27] MEDS ORDERED: Magnesium Hydroxide LIQ* 30 ML UDC PO PRN (11:03)
[2019-05-27] MEDS ORDERED: traMADol TAB* 50 MG PO PRN (11:03)
[2019-05-27] MEDS ORDERED: Ondansetron ODT TAB* 4 MG PO PRN (11:03)
--- NOTE | 2019-05-27 14:33 | PN ---
Progress Note - Progress Note Date of Service: 05/27/19 Note: Pt seen at bedside. She is POD 0 s/p LTK. Pain is well controlled, sensation is starting to return to LE. No CP, SOB, dizziness, nausea. DF/PF intact, sensation intact to light touch, DP2+.
[2019-05-27] MEDS: Lactated Ringers 1000 ML Bag* 1,000 ML IV SCH (14:37)
[2019-05-27] MEDS: Acetaminophen TAB* 325 MG PO SCH (15:28)
[2019-05-27] MEDS: oxyCODONE TAB* 5 MG TAB PO PRN ×2 (15:52→20:35)
--- OUTSIDE RECORDS SUMMARY | 2019-05-27 16:38 | XMS REPORT | Continuity of Care Document ---
:1960 External Reference #:[id number] Author Name Una Garza N.P. 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 Onset: 11/19/2015 Derangement of posterior horn of medial meniscus Karen Garza M.D. Onset: Localized, secondary osteoarthritis Karen Garza M.D. Onset: 08/14/2018 Social History Type Date Description Comments Sex Unknown ETOH Use Rarely consumes alcohol Tobacco Use Start: Unknown Patient has never smoked Recreational Drug Use Denies Drug Use Smoking Status Reviewed: 05/21/19 Patient has never smoked Exercise Type/Frequency Exercises regularly Allergies, Adverse Reactions, Alerts Active Allergies Reaction Severity Comments Date Clarithromycin stomach pain 09/15/2015 Levaquin muscle pain 11/12/2015 Latex 11/19/2015 Medications Active Medications SIG Qnty Indications Ordering Date Provider Macrobid take one tab 10caps Karen Garza, 05/16/2019 100mg Capsules twice a day for M.D. 5 days Fluticasone Propionate Draper 2 Sprays 16units Zheng Baker NP 03/06/2019 Into Each 50mcg/Act Suspension Nostril Every Day Ibuprofen take 1 by mouth 180tabs Karen Garza, 12/11/2018 800mg Tablets three times a M.D. day as needed for pain. take with food Cyclobenzaprine HCL take 1 tablet 180tabs Karen Garza, 11/17/2018 10mg by mouth every M.D. Tablets 8 hours as needed for pain Azelastine HCL (Nasal) Use 2 Sprays In 30units J01.90 Zheng Baker NP 10/22 Each Nostril 137mcg/Draper Solution Twice Daily as Needed Esomeprazole Magnesium Take 1 Capsule 90caps K21.9 Una Garza, [address] C[address] Medications Administered in Office Medication SIG Qnty Indications Ordering Provider Date Depomedrol 40MG Karen Garza M.D. 08/14/2018 Injection Depomedrol 40MG Karen Garza M.D. 10/02/2016 Injection Depomedrol 40MG Karen Garza M.D. 11/19/2015 Injection Immunizations CPT Code Status Date Vaccine Lot # [id number] Given 03/15/2019 Influenza Virus Vaccine, Quadrivalent, Split, Preservative Free [id number] Given 04/09/2018 Influenza Virus Vaccine, Quadrivalent, Split, Preservative Free 14520 Given 01/30/2018 Tdap - Tetanus/Diptheria/Acellular Pertussis [id number] Given 04/12/2016 Flu Vaccine NOS Vital Signs Date Vital Result Comment 05/21/2019 10:19am Height 67 inches 5'7" Weight 267.50 lb Heart Rate 72 /min BP Systolic Sitting 142 mmHg BP Diastolic Sitting 82 mmHg Body Temperature 97.7 F O2 % BldC Oximetry 99 % BMI (Body Mass Index) 41.9 kg/m2 05/14/2019 8:50am Height 67 inches 5'7" Weight 267.75 lb Heart Rate 70 /min BP Systolic 132 mmHg BP Diastolic 80 mmHg Respiratory Rate 12 /min Pain Level 0 BMI (Body Mass Index) 41.9 kg/m2 Results Test Acquired Date Facility Test Result H/L Range Note Urinalysis Profile 05/14/2019 [facility] Urine Color Yellow [address] [place] [address] [phone] Urine Appearance Cloudy Urine Specific [place] 1.010 Normal 1.010-1.030 Urine pH 6.0 Normal 5-9 Urine Urobilinogen Negative Negative Urine Ketones Trace Abnormal Negative Urine Protein Negative Negative Urine Leukocytes 1+ Abnormal Negative Urine Blood 1+ Abnormal Negative Urine Nitrite Negative Negative Urine Bilirubin Negative Negative Urine Glucose Negative Negative Urine White Blood Cell 3+(>20/hpf) Abnormal Absent Urine Red Blood Cell 2+(6-10/hpf) Abnormal Absent Urine Bacteria 1+ Abnormal Absent Urine Squamous Epithelial Cell Present Abnormal Absent CBC Auto 05/14/2019 [facility] White Blood 9.1 10^3/uL Normal 3.5-10.[address] [place] [address] [phone] Red Blood Count 4.86 10^6/uL Normal 3.70-4.87 Hemoglobin 13.6 g/dL Normal 12.0-16.0 Hematocrit 41 % Normal 35-47 Mean Corpuscular Volume 85 fL Normal 80-97 Mean Corpuscular Hemoglobin 28 pg Normal 27-31 Mean Corpuscular HGB Conc 33 g/dL Normal 31-36 Red Cell Distribution Width 13 % Normal 10-15 Platelet Count 267 10^3/uL Normal 150-450 Mean Platelet Volume 8.0 fL Normal 7.4-10.4 Abs Neutrophils 6.2 10^3/uL Normal 1.5-7.7 Abs Lymphocytes 1.9 10^3/uL Normal 1.0-4.8 Abs Monocytes 0.9 10^3/uL High 0-0.8 Abs Eosinophils 0.0 10^3/uL Normal 0-0.6 Abs Basophils 0.1 10^3/uL Normal 0-0.2 Abs Nucleated RBC 0.0 10^3/uL Granulocyte % 68.2 % Lymphocyte % 21.0 % Monocyte % 9.9 % Eosinophil % 0.3 % Basophil % 0.6 % Nucleated Red Blood Cells % 0.1 Comp Metabolic 05/14/2019 [facility] Sodium 138 mmol/L Normal 135-[address] [place] [address] [phone] Potassium 3.8 mmol/L Normal 3.5-5.0 Chloride 102 mmol/L Normal 101-111 Co2 Carbon Dioxide 30 mmol/L Normal 22-32 Anion Gap 6 mmol/L Normal 2-11 Glucose 96 mg/dL Normal 70-100 Blood Urea Nitrogen 10 mg/dL Normal 6-24 Creatinine 0.75 mg/dL Normal 0.51-0.95 BUN/Creatinine Ratio 13.3 Normal 8-20 Calcium 9.3 mg/dL Normal 8.6-10.3 Total Protein 6.8 g/dL Normal 6.4-8.9 Albumin 3.9 g/dL Normal 3.2-5.2 Globulin 2.9 g/dL Normal 2-4 Albumin/Globulin Ratio 1.3 Normal 1-3 Total Bilirubin 0.60 mg/dL Normal 0.2-1.0 Alkaline Phosphatase 84 U/L Normal 34-104 Alt 13 U/L Normal 7-52 Ast 15 U/L Normal 13-39 Egfr Non- 78.6 >60 Egfr 95.1 >60 1 Inr/Protime 05/14/2019 [facility] Inr 1.05 Normal 0.82-1.[address] [place] [address] [phone] Laboratory test 05/14/2019 [facility] Partial 33.8 Normal 26.0 -38.[address] [place] [address] Time PTT [phone] Type & Screen 05/14/2019 [facility] Patient O Positive [address] [place] [place] [address] [phone] Antibody Screen NEGATIVE Urine Culture And 05/14/2019 [facility] Urine Culture SEE RESULT [address] [place] [address] [phone] 1 Because ethnic data is not always readily [...] 15-29 5 Kidney failure <15 (or dialysis) 2 Standard intensity warfarin therapeutic range: 2.0-3.0 High intensity warfarin therapeutic range: 2.5-3.5 3 SEE RESULT BELOW Name: ANUSHA HUIZAR : [address]: Karen Garza MD Acct: [id number] Unit: [id number] AGE: 59 Location: PAT Re05/14/19 SEX: F Status: REG REF SPEC: [id number] CASIE: 05/14/[address]: Karen Garza MD REQ: [id number] RECD: 05/14/19 STATUS: COMP _ SOURCE: URINE SPDESC: ORDERED: Urine Culture QUERIES: Urine Source: Clean Catch Procedure Result Reported Site Urine Culture Final 05/16/19- 0846 ML Organism 1 ESCHERICHIA COLI [place] Count >100,000 (Many) CFU/ML Organism 2 KLEBSIELLA PNEUMONIAE [place] Count 1-10,000 (Few) CFU/ML 1. ESCHERICHIA COLI M.I.C. RX --------- ------ Ampicillin >=32 R Cefazolin <=4 S Cefepime <=1 S Ceftriaxone <=1 S Ciprofloxacin <=0.25 S Gentamicin <=1 S Levofloxacin <=0.12 S Meropenem <=0.25 S Nitrofurantoin <=16 S Tetracycline <=1 S Pipercillin/Tazobactam <=4 S Trimethoprim/Sulfamethoxazole >=320 R Amoxicillin/Clavulanic Acid 16 I Aztreonam <=1 S CONTINUED ON NEXT PAGE DEPARTMENT OF PATHOLOGY, [address] [place] [address] Raymond Carter M.D. Director [facility] # [id number] Patient: ANUSHA HUIZAR [id number] (Continued) Specimen: [id number] Collected: 05/14/19 Received: 05/14/19 (Continued) Procedure Result Reported Site Urine Culture Final (continued) 05/16/19845 2. KLEBSIELLA PNEUMONIAE M.I.C. RX --------- ------ Ampicillin >=32 R Cefazolin <=4 S Cefepime <=1 S Ceftriaxone <=1 S Ciprofloxacin <=0.25 S Gentamicin <=1 S Levofloxacin <=0.12 S Meropenem <=0.25 S Nitrofurantoin 64 I Tetracycline <=1 S Pipercillin/Tazobactam <=4 S Trimethoprim/Sulfamethoxazole <=20 S Amoxicillin/Clavulanic Acid <=2 S Aztreonam <=1 S Contact the Microbiology Department for any additional antibiotic reporting. * [facility] - Main Lab . END OF REPORT DEPARTMENT OF PATHOLOGY, [address] [place] [address] Raymond Carter M.D. Director [facility] # [id number] Procedures Date Code Description Status 02/18/2018 [id number] Colonoscopy Completed 02/05/2018 [id number] Mammogram Completed 09/27/2015 [id number] Mammogram Completed Medical Devices Description No Information Available Encounters Type Date Location Provider Dx Diagnosis Office Visit 12/11/2018 [facility] Karen Garza, M25.562 Pain in left knee 3:00p at [place] M25.462 Effusion, left knee M17.32 Unilateral post-traumatic osteoarthritis, left knee Assessments Date Code Description Provider 05/21/2019 Z01.818 Encounter for other preprocedural examination Una Garza, N.P. 05/21/2019 M17.32 Unilateral post-traumatic osteoarthritis, left Una Varn, N.P. knee 05/21/2019 K21.9 Gastro-esophageal reflux disease without Una Varn, N.P. esophagitis 05/21/2019 N39.0 Urinary tract infection, site not specified Una Garza, N.P. 05/14/2019 M25.562 Pain in left knee Karen Garza M.D. 05/14/2019 M25.462 Effusion, left knee Karen Garza M.D. 05/14/2019 M17.32 Unilateral post-traumatic osteoarthritis, left Karen Garza M.D. knee 01/23/2019 M25.562 Pain in left knee Karen Garza M.D. 01/23/2019 M25.462 Effusion, left knee Karen Garza M.D. 01/23/2019 M17.32 Unilateral post-traumatic osteoarthritis, left Karen Garza M.D. knee 12/11/2018 M25.562 Pain in left knee Karen Garza M.D. 12/11/2018 M25.462 Effusion, left knee Karen Garza M.D. 12/11/2018 M17.32 Unilateral post-traumatic osteoarthritis, left Karen Garza M.D. knee Plan of Treatment Future Appointment(s):05/27/2019 12:30 pm - Gal Quintanilla PA-C at [facility] at Drootl2805/27/2019 12:30 pm - ANA MARIA Bustamante at [facility] at Vkimav6206/06/2019 8:30 am - Karen Garza M.D. at [facility] at Iwsvbv6808/11/2019 9:20 am - Una Garza N.P. at [facility] - [facility]/27/2019 12:30 pm - Karen Garza M.D. at [facility] at Jlrrrt0905/21/2019 - Una Garza N.P.Z01.818 Encounter for other preprocedural examinationComments:You may take all of your usual medications the morning of your surgery, unless your surgeon tells you otherwise. Please stop taking Aspirin, or Aspirin like products for 1 week prior to your surgery. Ihave ordered a repeat urine culture to be sure your infection has cleared. I will contact you with your results.M17.32 Unilateral post-traumatic osteoarthritis, left kneeK21.9 Gastro-esophageal reflux disease without pbelatzuadlI71.0 Urinary tract infection, site not specified Functional Status Description No Information Available Mental Status Description No Information Available Referrals Description No Information Available
--- OUTSIDE RECORDS SUMMARY | 2019-05-27 16:38 | XMS REPORT | Continuity of Care Document ---
:1960 External Reference #:[id number] Author Name Karen Garza M.D. 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 Onset: 11/19/2015 Derangement of posterior horn of medial meniscus Karen aGrza M.D. Onset: Localized, secondary osteoarthritis Karen Garza M.D. Onset: 08/14/2018 Social History Type Date Description Comments Sex Unknown ETOH Use Rarely consumes alcohol Tobacco Use Start: Unknown Patient has never smoked Recreational Drug Use Denies Drug Use Smoking Status Reviewed: 05/14/19 Patient has never smoked Exercise Type/Frequency Exercises regularly Allergies, Adverse Reactions, Alerts Active Allergies Reaction Severity Comments Date Clarithromycin stomach pain 09/15/2015 Levaquin muscle pain 11/12/2015 Latex 11/19/2015 Medications Active Medications SIG Qnty Indications Ordering Date Provider Fluticasone Propionate Slemp 2 Sprays 16units Zheng Baker NP 03/06/2019 Into Each Nostril 50mcg/Act Suspension Every Day Ibuprofen take 1 by mouth 180tabs Karen Garza, 12/11/2018 800mg Tablets three times a day M.D. as needed for pain. take with food Cyclobenzaprine HCL take 1 tablet by 180tabs Karen Garza, 11/17/2018 10mg mouth every 8 M.D. Tablets hours as needed for pain Azelastine HCL (Nasal) Use 2 Sprays In 30units J01.90 Zheng Baker NP 10/22 Each Nostril Twice 137mcg/Slemp Solution Daily as Needed Esomeprazole Magnesium Take 1 Capsule 90caps K21.9 Una Butlerfinesse, 2016 Daily N.P. 40mg Capsules DR Be HFA 1 to 2 inhalations 1inhaler J20.9 Una Butlerfinesse, 07/05/2016 108(90Base) every 4 hours as N.P. mcg/Act Aerosol needed Medications Administered in Office Medication SIG Qnty Indications Ordering Provider Date Depomedrol 40MG Karen Garza M.D. 08/14/2018 Injection Depomedrol 40MG Karen Garza M.D. 10/02/2016 Injection Kailashomedrol 40MG Karen Garza M.D. 11/19/2015 Injection Immunizations CPT Code Status Date Vaccine Lot # [id number] Given 03/15/2019 Influenza Virus Vaccine, Quadrivalent, Split, Preservative Free [id number] Given 04/09/2018 Influenza Virus Vaccine, Quadrivalent, Split, Preservative Free [id number] Given 01/30/2018 Tdap - Tetanus/Diptheria/Acellular Pertussis 4P9CL Q2039 Given 04/12/2016 Flu Vaccine NOS Vital Signs Date Vital Result Comment 05/14/2019 8:50am Height 67 inches 5'7" Weight 267.75 lb Heart Rate 70 /min BP Systolic 132 mmHg BP Diastolic 80 mmHg Respiratory Rate 12 /min Pain Level 0 BMI (Body Mass Index) 41.9 kg/m2 12/11/2018 2:58pm Height 67 inches 5'7" Heart Rate 76 /min BP Systolic 122 mmHg BP Diastolic 70 mmHg Respiratory Rate 18 /min Body Temperature 96.4 F Pain Level 4 Results Description No Information Available Procedures Date Code Description Status 02/18/2018 [id number] Colonoscopy Completed 02/05/2018 [id number] Mammogram Completed 09/27/2015 [id number] Mammogram Completed Medical Devices Description No Information Available Encounters Type Date Location Provider Dx Diagnosis Office Visit 12/11/2018 [facility] Karen Garza, M25.562 Pain in left knee 3:00p at [place] M25.462 Effusion, left knee M17.32 Unilateral post-traumatic osteoarthritis, left knee Assessments Date Code Description Provider 05/14/2019 M25.562 Pain in left knee Karen [...] Garza M.D. knee Plan of Treatment Future Appointment(s):06/16/2019 3:30 pm - Karen Garza M.D. at [facility] at Spvbgy4808/11/2019 9:20 am - Una Garza, N.PNicolas at [facility] Internal Medicine [facility]05/21/2019 10:20 am - Una Garza NPam at [facility] Internal Medicine [facility]05/27/2019 12:30 pm - Karen Garza M.D. at [facility] at Sxvnyf2005/14/2019 - Karen Garza M.D.M25.562 Pain in left kneeFollow up: Follow up: 2 weeks after jazdjphQ32.462 Effusion, left kneeM17.32 Unilateral post-traumatic osteoarthritis, left knee Functional Status Description No Information Available Mental Status Description No Information Available Referrals Description No Information Available
[2019-05-27] MEDS: ceFAZolin 1 GM ADVAN(*) 1 GM in NS 0.9% 50 ML* 50 ML IVPB SCH (18:19)
[2019-05-27] MEDS: oxyCODONE/Acetamin 5/325 MG* TAB PO PRN (19:17)
[2019-05-27] MEDS: Docusate CAP* 100 MG PO SCH (20:30)
[2019-05-27] MEDS: Magnesium Hydroxide LIQ* 30 ML UDC PO SCH (20:31)
--- NOTE | 2019-05-27 20:44 | OP ---
Operative Report - Blank - Operative Report Date of Operation: 05/27/19 Note: RONAN HUIZAR 1960 Date of Surgery: 05/27/19 Karen Garza MD Skimmer Reverberatory: Anni RODGERS did help throughout the procedure with preparation of the knee, wound retraction, manipulation of the knee, and wound closure. Anesthesiologist: Latia De Jesus MD Anesthesia Type: Spinal Preoperative Diagnosis: Left severe degenerative osteoarthritis of the knee Postoperative Diagnosis: As above Procedure Performed: Left Total Knee Arthroplasty Tourniquet time: 42 minutes Complications: None Specimen: Bone and cartilage from the left knee joint sent to pathology. Hardware Used: Cemented Copeland [employer] Nephew total knee hardware was used - For the femur a size 5 left oxinium legion posterior stabilized femoral component, for the tibia a size 5 left fernnado II tibial baseplate, for the insert a size 11mm posterior stabilized articular polyethylene insert, and for the patella a size 32 3-peg all poly patella. Brief History/Indication: RONAN HUIZAR was known in clinic and had a history of severe left knee pain and swelling. She failed conservative treatment with anti-inflammatories, pain pills, intra-articular injections and physical therapy. She elected to undergo left total knee arthroplasty due to continued pain and decreased quality of life. Radiographs showed severe end stage osteoarthritis of the knee with bone on bone contact. Informed consent was obtained from the patient. She understood the risks of surgery included but were not limited to: bleeding, infection, damage to nearby structures, intraoperative fracture, nerve palsy, failure of the hardware, early loosening, knee stiffness or loss of motion, anesthesia complications, stroke, heart attack , blood clot and . She wished to proceed. Intra-Operative Findings: Intraoperatively the patient was noted to have severe loss of cartilage in all 3 compartments of the knee. Description of the Procedure: RONAN HUIZAR was identified in the preanesthesia unit. Her left knee was marked as the correct operative side. Informed consent was signed and placed in the chart. The patient was taken to the operating room and placed under anesthesia without complication. A barrera catheter was placed. A tourniquet was placed on the left thigh. The left lower extremity was prepped and draped in the usual sterile fashion. Preoperative time-out was made to correctly identify the patient, side and site. Appropriate intraoperative antibiotics were given within one hour of incision. Tourniquet was inflated. A midline incision was made and carried sharply down to the extensor mechanism. A new 10 blade was used to make a standard medial parapatellar arthrotomy. The patella was subluxed laterally. Electrocautery was used to dissect soft tissue off the superomedial tibia to the midsagittal plane. The knee was flexed up. The anterior horn of the lateral meniscus and the ACL were sharply incised. A drill was used to enter the distal femur. The intramedullary distal femoral cutting guide was pinned on the distal femur. The oscillating saw was used to make the distal femoral cut. The external rotation guide was pinned on the distal femur and the distal femur was sized to a size 5. The size 5 multi-cutting jig was pinned on the distal femur. The oscillating saw was used to make the appropriate 4 chamfer cuts. Next the PCL was completely released. The extramedullary tibial cutting guide was pinned on the proximal tibia and the oscillating saw was used to make the proximal tibial cut perpendicular to the mechanical axis of the tibia. The bone was carefully removed. The knee was brought out into full extension. The spacer block was placed and had excellent fit with the knee in full extension. The medial and lateral ligaments were well balanced. The flexion and extension gaps were well balanced. The knee was flexed up. Lamina planer chain offbearer was placed both medially and laterally. Any remaining meniscus was removed with electrocautery. Curved osteotome was used to remove any posterior osteophytes. The tibial tray and drop wesley were placed and confirmed a satisfactory tibial cut. The size 5 left femoral trial was impacted onto the distal femur. This trial had excellent fit and stability. The box for the posterior stabilized implant was prepared using a box cut osteotome and a reamer. Next a tibial tray trial and 11 mm insert trial was placed. The knee was taken through a range of motion and had full extension to 130 degrees of flexion. Patellofemoral tracking was satisfactory. The patella was inverted and sized to a size 32. Three peg holes were drilled through the size 32 drill guide. The trial patella was placed and the knee was taken through a range of motion. There was satisfactory patellofemoral tracking. All trials were removed. The tibia was subluxed anteriorly and sized to a size 5. The proximal tibial was prepared with a size 5 keel punch. All bony cut surfaces were irrigated with sterile saline and dried. Final implants were cemented into place starting with the tibia, followed by the femur, and last the patella. A 9 mm insert trial was placed and the knee was brought into full extension. Tourniquet was turned down and the knee was copiously irrigated with sterile saline. Electrocautery was used to obtain meticulous hemostasis. Once the cement had fully cured, the insert trial was removed. Any excess cement was removed from around the hardware and capsule. Final insert chosen was a 11 mm posterior stabilized Fernando II articular insert size 5-6. Stability of the insert was checked and noted to be stable. The extensor mechanism was closed using number 1 vicryls. The rest of the incision was closed in a layered fashion using 0 and 2-0 vicryls. The skin was closed using 3-0 nylon suture. Sterile xeroform, 4x4s and webril were used to cover the incision. John wrap and cold pack were used to cover the dressings. The patients anesthesia was reversed without difficulty. She was taken to the PACU in stable condition. Intended weight-bearing will be as tolerated.
[2019-05-28] MEDS: oxyCODONE/Acetamin 5/325 MG* TAB PO PRN ×4 (00:26→18:31)
[2019-05-28] MEDS: ceFAZolin 1 GM ADVAN(*) 1 GM in NS 0.9% 50 ML* 50 ML IVPB SCH ×2 (00:27→09:17)
[2019-05-28] MEDS: Acetaminophen TAB* 325 MG PO SCH ×3 (00:29→15:35)
[2019-05-28] MEDS: oxyCODONE TAB* 5 MG TAB PO PRN ×3 (03:30→15:39)
[2019-05-28] MEDS: Lactated Ringers 1000 ML Bag* 1,000 ML IV SCH ×2 (03:36→09:26)
[2019-05-28 05:00] LABS: Hematocrit 32 % (35-47); Hemoglobin 10.9 g/dL (12.0-16.0); Mean Platelet Volume 7.3 fL (7.4-10.4); Platelet Count 326 10^3/uL (150-450)
[2019-05-28 05:19] LABS: BUN/Creatinine Ratio 19.7 (8-20); Calcium 8.5 mg/dL (8.6-10.3); EGFR African American 101.3 (>60); EGFR Non-African American 83.7 (>60); Potassium 3.8 mmol/L (3.5-5.0)
--- NOTE | 2019-05-28 08:01 | PN ---
Progress Note - Progress Note Date of Service: 05/28/19 SOAP: Subjective: []Pt seen at bedside. She feels well without CP, SOB, dizziness, nausea. Desires DC home today if she meets PT goals. Objective: []Gen: NAD, appears well LLE: Left knee dressing CDI, thigh soft. DF/PF intact, DP2+, sensation intact to light touch distally. Calves supple and nontender without erythema, edema or palpable cords Assessment: []LTK POD 1 Plan: []WBAT PT/OT eliquis 2.5 mg po BID x 30 days post op Anticipate DC this afternoon if PT goals met, needs dressing change prior to DC Vital Signs Temp 97.9 F 05/28/19 07:22 Pulse 76 05/28/19 07:22 Resp 16 05/28/19 07:22 BP 124/69 05/28/19 07:22 Pulse Ox 98 05/28/19 07:22 Intake & Output 05/27/19 05/28/19 05/28/19 18:59 06:59 18:59 Intake Total 850 2360 Output Total 600 1100 Balance 250 1260 Weight 272 lb 6 oz Intake: IV Fluids 850 947 LR 800 947 NS 50ML, Cefazolin 2G 50 IVPB 113 ABX - CEFAZOLIN 113 Oral 1300 Output: Anderson 600 1100 Laboratory Last Values Hgb 10.9 g/dL (12.0-16.0) L 05/28/19 04:44 Hct 32 % (35-47) L 05/28/19 04:44 Plt Count 326 10^3/uL (150-450) 05/28/19 04:44 MPV 7.3 fL (7.4-10.4) L 05/28/19 04:44 Sodium 139 mmol/L (135-145) 05/28/19 04:44 Potassium 3.8 mmol/L (3.5-5.0) 05/28/19 04:44 Chloride 107 mmol/L (101-111) 05/28/19 04:44 Carbon Dioxide 28 mmol/L (22-32) 05/28/19 04:44 Anion Gap 4 mmol/L (2-11) 05/28/19 04:44 BUN 14 mg/dL (6-24) 05/28/19 04:44 Creatinine 0.71 mg/dL (0.51-0.95) 05/28/19 04:44 Est GFR ( Amer) 101.3 (>60) 05/28/19 04:44 Est GFR (Non-Af Amer) 83.7 (>60) 05/28/19 04:44 BUN/Creatinine Ratio 19.7 (8-20) 05/28/19 04:44 Glucose 139 mg/dL (70-100) H 05/28/19 04:44 Calcium 8.5 mg/dL (8.6-10.3) L 05/28/19 04:44
[2019-05-28] MEDS ORDERED: Apixaban* 2.5 MG TAB PO SCH (09:00)
[2019-05-28] MEDS ORDERED: Vitamin THERAPEUTIC TAB PO SCH (09:00)
[2019-05-28] MEDS: Magnesium Hydroxide LIQ* 30 ML UDC PO SCH (09:21)
[2019-05-28] MEDS: Docusate CAP* 100 MG PO SCH (09:21)
[2019-05-28 15:23] VITALS: BP 125/52
--- NOTE | 2019-05-28 15:37 | DS ---
Orthopedic Discharge Summary - Discharge Summary Date of Admission:05/27/19 Date of Discharge: 05/28/19 Date of Surgery: 05/27/19 Attending Orthopedic Provider: Dr Garza Pre-operative Diagnosis: Left knee osteoarthritis Operative Procedure: left total knee replacement Disposition of Patient: home with outpatient PT Condition of Patient: stable History: RONAN HUIZAR is a 59 year old F with years of increasingly severe left knee pain. Patient has failed conservative management and has elected to undergo a left total knee replacement Hospital Course: RONAN was admitted to [facility] on 05/27/19. Patient underwent a left total knee replacement without complication followed by a brief recovery in PACU and transfer to the Short Stay Surgical Unit in stable condition. Our physical therapy service also participated in this patients care. Post-op day 1: patient was alert and in no acute distress. Dressing was clean, dry and intact. Operative extremity dorsiflexion and plantarflexion intact, sensation intact to light touch distally, DP2+. Patient had an episode of lightheadedness when working with PT 05/28 in the morning, her manual BP was 90/50 and lightheadedness resolved with seated rest. She was also given a 500 ml LR bolus of fluid. She ambulate several times and worked with PT again since meeting her goals and remaining asymptomatic without hypotension. Prior to discharge: dressing was changed, incision was clean, dry and intact. Patient was deemed to be medically and orthopedically stable for discharge. Physical therapy goals were met. Home Medications Medication Instructions Recorded Confirmed Type Fluticasone NASAL SPRAY 50MCG* 2 spray BOTH NARES QAM 02/10/16 05/27/19 History [Flonase NASAL SPRAY 50MCG*] Esomeprazole(NF) [Nexium(NF)] 40 mg PO QAM 02/13/18 05/27/19 History Azelastine 0.1% Nasal (NF) 1 spray BOTH NARES BID PRN 05/14/19 05/27/19 History [Astepro 0.1% Nasal (NF)] Cyclobenzaprine TAB* [Flexeril 10 10 mg PO TID PRN 05/14/19 05/14/19 History MG TAB*] LoraTADine TAB(NF) [Claritin 10 MG 10 mg PO QAM 05/14/19 05/27/19 History TAB(NF)] Multivit with Calcium,Iron,Min 1 each PO QAM 05/14/19 05/27/19 History [Multiple Vitamins For Women] Acetaminophen TAB* [Tylenol TAB*] 975 mg PO Q8H tab 05/28/19 Rx Apixaban* [Eliquis*] 2.5 mg PO BID #60 tab 05/28/19 Rx Docusate CAP* [Colace Cap*] 100 mg PO BID PRN #90 cap 05/28/19 Rx oxyCODONE/Acetamin 5/325 MG* 2 tab PO Q4H PRN #70 tab MDD 10 05/28/19 Rx [Percocet 5/325 TAB*] Discharge Instructions following Orthopedic Surgery: Activity: * Weight Bearing as tolerated * Continue physical therapy and occupational therapy exercises as shown * Outpatient physical therapy Wound care: * OK to shower on post-op day 3, no bathing, swimming, or submerging wound. * Use gentle soap, pat dry. Cover with gauze, VIMAL wrap or tape. Call Orthopedic office for: * Increased drainage * Redness * Increased pain * Fever Go to ER with shortness of breath or chest pain. Diet: * Regular diet * Increase fluids and fiber to prevent constipation. * Continue to use stool softeners, call office if no bowel motion within 48 hours. Medications See Home Medication List in your packet for medications that you should take after discharge. DVT Prophylaxis: Eliquis Dosin.5 mg, 1 tab every 12 hours x 30 days. increases bleeding tendency Pain Control: Percocet Dosin/325 mg 1tab for moderate pain and 2 tabs for severe pain by mouth every 4-6 hours as needed for pain. Maximum of 10 tabs per day. hold for sedation and wean off as soon as pain allows. Please note that Percocet contains Tylenol (acetaminophen). Maximum daily dose of Tylenol is 4000 mg from all sources. Antibiotics are required prior to any dental work. Change positions slowly. If you feel lightheaded discontinue percocet and call your PCP FOLLOW UP: Follow up with [Greg] Within 10-14 days, call for appointment Please call our office with any questions or concerns ([phone]) RX to [facility] [place]
[2019-05-29] MEDS ORDERED: Bisacodyl SUPP* 10 MG SUPP PR PRN (11:03)
== END 2019-05-28 18:42 | disposition home or self-care (01) | DRG 302 ==
LOC: AA 07:01 → SSU 11:03
PROVIDERS: ADMIT Orthopaedic Surgery Adult Reconstructive Orthopaedic Surgery; ATTEND Orthopaedic Surgery Adult Reconstructive Orthopaedic Surgery
PROC: 0SRD0J9 Replacement of Left Knee Joint with Synthetic Substitute, Cemented, Open Approach (ICD-10-PCS; principal; 2019-05-27 10:15)
DX: M17.12 Unilateral primary osteoarthritis, left knee (principal); M25.762 Osteophyte, left knee; K21.9 Gastro-esophageal reflux disease without esophagitis; R42 Dizziness and giddiness; Z85.42 Personal history of malignant neoplasm of other parts of uterus; Z79.1 Long term (current) use of non-steroidal anti-inflammatories (NSAID); Z79.899 Other long term (current) drug therapy; Z88.8 Allergy status to other drugs, medicaments and biological substances; Z88.1 Allergy status to other antibiotic agents; Z91.040 Latex allergy status
CPT/HCPCS: 36415; 80048; 85014; 85018; 85049; A9270-GY; J0690; J1100; J2250; J2704; J2795; J3010; J3490